=== PATIENT | female | born 1950 | race Caucasian/White ===

== ENCOUNTER 2018-07-08 10:06 | Outpatient (CLI) | payer MEDICARE, BC | END 2018-07-08 10:07 | disposition home or self-care (01) | LOC: RT 10:06 | PROVIDERS: ATTEND Internal Medicine Cardiovascular Disease | DX: I48.91 Unspecified atrial fibrillation (principal) | CPT/HCPCS: 93005 ==

== ENCOUNTER 2018-07-23 15:44 | Outpatient (CLI) | payer MEDICARE, BC ==
--- NOTE | 2018-07-30 08:45 | Mammography Report ---
Reason: SCREENING MAMMO Procedure Date: 07/23/2018 Accession Number: [id number] / [id number] Procedure: ALYCE - Screening Mammo w/Brooke CPT Code: FULL RESULT: EXAM: Screening Mammo w/Brooke DATE: 07/23/2018 4:15 PM CLINICAL HISTORY: Screening examination. TECHNIQUE: (B) - Bilateral CC and MLO views were obtained. COMPARISON: None PARENCHYMAL PATTERN: (A) - The breasts demonstrate scattered fibroglandular densities bilaterally. FINDINGS: Right breast: No suspicious mass, asymmetry or pleomorphic microcalcifications. Left breast: Small focal breast asymmetry periareolar, approximate 3:00 position (slice 35 on CC brooke and slice 31 on MLO brooke). IMPRESSION: Incomplete examination. BI-RADS category 0. RECOMMENDATION: (ADDMU) - Additional views using both Mammography and Ultrasound recommended. Recommend spot compression mammogram and targeted ultrasound. BI-RADS CATEGORY: (0) - Incomplete Examination - need additional evaluation. STANDARD QUALIFYING STATEMENTS: 1. This examination was not reviewed with the aid of Computer-Aided Detection (CAD). 2. A negative or benign imaging report should not preclude biopsy if clinically suspicious findings are present. 3. Dense breasts may obscure an underlying neoplasm. 4. This examination was reviewed with the aid of 3D breast imaging (tomosynthesis).
== END 2018-07-23 15:45 | disposition home or self-care (01) ==
LOC: DI 15:44
PROVIDERS: ATTEND Internal Medicine
DX: Z12.31 Encounter for screening mammogram for malignant neoplasm of breast (principal)
CPT/HCPCS: 77063; 77067

== ENCOUNTER 2018-10-03 11:07 | Emergency (ER) | payer MEDICARE, BC ==
[2018-10-03 11:29] LABS: BASOPHILS # (AUTO) 0.1 10^3/uL (0.0-0.1); BASOPHILS % (AUTO) 0.6 %; EOSINOPHILS # (AUTO) 0.2 10^3/uL (0.0-0.7); EOSINOPHILS % (AUTO) 1.9 %; HGB - HEMOGLOBIN 14.6 g/dL (12.0-16.0); LYMPHOCYTES # (AUTO) 3.1 10^3/uL (1.5-3.5); MEAN CORPUSCULAR HEMOGLOBIN 28.6 pg (27.0-31.0); MEAN CORPUSCULAR HGB CONC 31.7 g/dL (32.0-36.0); MEAN CORPUSCULAR VOLUME 90.2 fL (81.0-99.0); MEAN PLATELET VOLUME 10.8 fL (7.9-10.8); MONOCYTES # (AUTO) 0.7 10^3/uL (0.0-1.0); MONOCYTES % (AUTO) 8.2 %; NEUTROPHILS # (AUTO) 4.5 10^3/uL (1.5-6.6); NEUTROPHILS % (AUTO) 52.8 %; PLT - PLATELET COUNT 283 10^3/uL (130-450); RED CELL DISTRIBUTION WIDTH 12.9 % (12.0-15.0); WHITE BLOOD COUNT 8.5 x10^3/uL (4.8-10.8)
[2018-10-03 11:38] LABS: ALBUMIN 4.6 g/dL (3.2-5.5); ALBUMIN/GLOBULIN RATIO 1.6 (1.0-2.2); BILIRUBIN,TOTAL 1.1 mg/dL (0.2-1.0); CALCIUM 9.3 mg/dL (8.5-10.3); TOTAL PROTEIN 7.4 g/dL (6.7-8.2)
--- NOTE | 2018-10-03 11:55 | XRAY Report ---
Reason: Irregular heart beat Procedure Date: 10/03/2018 Accession Number: [id number] / [id number] Procedure: XR - Chest 1 View X-Ray CPT Code: 96914 FULL RESULT: EXAM: CHEST RADIOGRAPHY EXAM DATE: 10/03/2018 11:29 AM. CLINICAL HISTORY: Irregular heart beat. COMPARISON: None. TECHNIQUE: 1 view. FINDINGS: Lungs/Pleura: No focal opacities evident. No pleural effusion. No pneumothorax. Mediastinum: Within exam limitations, the cardiomediastinal contour is normal. Post sternotomy changes noted. Other: None. IMPRESSION: Grossly unremarkable exam, post sternotomy. RADIA
[2018-10-03] MEDS ORDERED: FLECAINIDE 50 MG TABLET PO STA (12:00)
--- NOTE | 2018-10-03 12:04 | ED Physician Documentation ---
History of Present Illness - Stated complaint Stated Complaint: IRREGULAR HB - Chief complaint Chief Complaint: Cardiac - History obtained from History obtained from: Patient - History of Present Illness Timing: Today Pain level max: 0 Pain level now: 0 Improved by: nothing Worsened by: nothing - Additonal information Additional information: felt her heart beating fast today. History of AFib. no chest pain. no dyspnea. No changes to her medications. She is on flecainide. She thinks that she may have a history of WPW, but is uncertain of this. Review of Systems Constitutional: denies: Fever, Chills Nose: denies: Rhinorrhea / runny nose, Congestion GI: denies: Vomiting, Diarrhea Skin: denies: Rash Musculoskeletal: denies: Neck pain, Back pain Neurologic: denies: Headache PD PAST MEDICAL HISTORY - Past Medical History Past Medical History: Yes Cardiovascular: Murmur, Valve disorder GI: Cholelithiasis - Past Surgical History Past Surgical History: Yes General: 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 - Present Medications Home Medications: Ambulatory Orders Medication Instructions Recorded Confirmed Calcium Citrate/Vitamin D3 1 each PO 12/02/12 12/02/12 [Calcitrate + Vit D Caplet] Loratadine [Children's Claritin] 5 mg PO 12/02/12 12/02/12 Simvastatin [Zocor] 20 mg PO 12/02/12 12/02/12 Apixaban [Eliquis] 5 mg PO DAILY 10/03/18 10/03/18 Flecainide [Tambocar] 50 mg PO Q12H 10/03/18 10/03/18 - Allergies Allergies/Adverse Reactions: Allergies Allergy/AdvReac Type Severity Reaction Status Date / Time tetanus immune globulin Allergy Intermediate Hives Verified 12/02/12 10:23 - Social History Does the pt smoke?: No Smoking Status: Never smoker Does the pt drink ETOH?: Yes PD ED PE NORMAL - Vitals Vital signs reviewed: Yes - General General: Alert and oriented X 3, No acute distress - HEENT HEENT: Moist mucous membranes - Neck Neck: Supple, no meningeal sign - Cardiac Cardiac: Other (irregular, tachycardic) - Respiratory Respiratory: No respiratory distress, Clear bilaterally - Abdomen Abdomen: Soft, Non tender, Non distended - Derm Derm: Warm and dry - Extremities Extremities: No edema, No calf tenderness / cord - Neuro Neuro: Alert and oriented X 3 Results - Vitals Vitals: Vital Signs - 24 hr 10/03/18 10/03/18 10/03/18 11:09 11:21 12:38 Temperature 36.3 C L Heart Rate 132 H 116 H 106 H Respiratory 20 18 16 Rate Blood Pressure 153/55 H 153/56 H 114/65 O2 Saturation 99 98 96 10/03/18 14:00 Temperature Heart Rate 99 Respiratory 22 Rate Blood Pressure 103/63 O2 Saturation 100 Oxygen O2 Source Room air - EKG (time done) 1109 Rate: Rate (enter#) (131) Rhythm: Atrial fibrillation (RVR) Intervals: RBBB - Labs Labs: Laboratory Tests 10/03/18 10/03/18 10/03/18 11:13 11:13 11:13 WBC 8.5 RBC 5.10 Hgb 14.6 Hct 46.0 MCV 90.2 MCH 28.6 MCHC 31.7 L RDW 12.9 Plt Count 283 MPV 10.8 Neut # (Auto) 4.5 Lymph # (Auto) 3.1 [place] # (Auto) 0.7 Eos # (Auto) 0.2 Baso # (Auto) 0.1 Absolute Nucleated RBC 0.00 Nucleated RBC % 0.0 Sodium 135 Potassium 3.4 L Chloride 99 L Carbon Dioxide 25 Anion Gap 11.0 BUN 14 Creatinine 1.0 Estimated GFR (MDRD) 55 L Glucose 120 H Calcium 9.3 Total Bilirubin 1.1 H AST 24 ALT 19 Alkaline Phosphatase 59 Troponin I < 0.04 Total Protein 7.4 Albumin 4.6 Globulin 2.8 Albumin/Globulin Ratio 1.6 Lipase 36 - Rads (name of study) cxr Radiology: Prelim report reviewed, EMP read contemporaneously, See rad report (normal) PD MEDICAL DECISION MAKING - ED course Complexity details: reviewed results, re-evaluated patient, considered differential, d/w patient, d/w family ED course: Patient with a history of atrial fibrillation with rapid ventricular response. She is taking flecainide. Took an extra dose in the emergency department and became rate controlled. She does not want to be cardioverted. 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 She is comfortable going home at this time and is asymptomatic. Patient counseled regarding signs and symptoms for which I believe and urgent re-evaluation would be necessary. Patient with good understanding of and agreement to plan and is comfortable going home at this time This document was made in part using voice recognition software. While efforts are made to proofread this document, sound alike and grammatical errors may occur. Departure - Departure Disposition: 01 Home, Self Care Clinical Impression: Atrial fibrillation with RVR Condition: Good Health Concerns: afib Plan of Treatment: flecanide Care Goals: rate/rhythm control Assessment: improved Instructions: ED Afib Follow-Up: Lela Robins MD [Primary Care Provider] - Within 1 week Comments: Return if you worsen. Because of your history of WPW, we will avoid AV carlos alberto blocking drugs today. Discharge Date/Time: 10/03/18 14:01
[2018-10-03 14:01] VITALS: BP 103/63
== END 2018-10-03 14:01 | disposition home or self-care (01) ==
LOC: ED 11:07
DX: I48.91 Unspecified atrial fibrillation (principal); I45.10 Unspecified right bundle-branch block; I45.81 Long QT syndrome; Z86.79 Personal history of other diseases of the circulatory system
CPT/HCPCS: 36415; 71045; 80053; 83690; 84484; 85025; 93005; 99282; 99284; A9270

== ENCOUNTER 2018-10-07 11:19 | Outpatient (CLI) | payer MEDICARE, BC ==
[2018-10-07 12:55] LABS: THYROID STIMULATING HORMONE 1.77 uIU/mL (0.34-5.60)
[2018-10-07 12:57] LABS: FREE T4 (FREE THYROXINE) 0.87 ng/dL (0.58-1.64)
== END 2018-10-07 11:20 | disposition home or self-care (01) ==
LOC: LAB 11:19
PROVIDERS: ATTEND Internal Medicine Cardiovascular Disease
DX: I48.91 Unspecified atrial fibrillation (principal)
CPT/HCPCS: 36415; 84439; 84443

== ENCOUNTER 2019-09-23 12:01 | Outpatient (CLI) | payer MEDICARE, BC ==
[2019-09-23] MEDS ORDERED: IOVERSOL 320 100 ML VIAL IVP ONE ×2 (12:17→14:52)
[2019-09-23] MEDS ORDERED: IOVERSOL 320 50 ML VIAL ONE (12:17)
[2019-09-23 12:40] LABS: CREATININE 0.7 mg/dL (0.4-1.0)
[2019-09-23] MEDS ORDERED: IOVERSOL 320 50 ML VIAL PO ONE (14:52)
--- NOTE | 2019-09-23 15:07 | CT Report ---
PROCEDURE: Abdomen/Pelvis W INDICATIONS: RLQ AND LUQ ABDOMINAL PAIN CONTRAST: IV CONTRAST: Optiray 320 ml: 100 PO CONTRAST: Optiray 320 ml50 TECHNIQUE: After the administration of oral and intravenous contrast, 5 mm thick sections acquired from the diap hragms to the symphysis. 5 mm thick coronal and sagittal reformats were acquired. For radiation dos e reduction, the following was used: automated exposure control, adjustment of mA and/or kV accordin g to patient size. COMPARISON: None. FINDINGS: Image quality: Excellent. ABDOMEN: Lung bases: Lung bases are clear. Heart size is mildly enlarged. There is a small hiatal hernia. Solid organs: Multiple hepatic cysts are demonstrated. Scattered hepatic calcifications are also pre sent consistent with sequelae of old granulomatous disease. Gallbladder is surgically absent. Biliar y system is non dilated. Pancreas enhances normally. No peripancreatic fat stranding and fluid colle ctions. No pancreatic duct dilatation. No adrenal nodules. The spleen is normal in size. A small oval hypodensity is demonstrated in the spleen measuring up to 1.1 cm. No perisplenic fluid collections. Kidneys demonstrate normal size and enhancement, without hydronephrosis. Peritoneum and bowel: Bowel loops demonstrate normal wall thickness and caliber. The appendix is no rmal in appearance. No free fluid or air. Nodes and vessels: No retroperitoneal or mesenteric adenopathy by size criteria. Aorta and inferior vena cava are normal in size. Miscellaneous: No ventral hernias. PELVIS: Genitourinary: Bladder wall thickness is normal. Miscellaneous: No inguinal hernias or adenopathy. Bones: No suspicious bony lesions. No vertebral body compression fractures. IMPRESSION: 1. No definite acute intra-abdominal abnormality. Specifically, no evidence of appendicitis. 2. Nonspecific small hypodensity in the spleen. Differential considerations include a cyst, hemangiom a, or sequelae of prior trauma. Reviewed by: Prasad Waterman MD on 09/23/2019 3:06 PM PDT Approved by: Prasad Waterman MD on 09/23/2019 3:06 PM PDT Station ID: [id number]
== END 2019-09-23 12:02 | disposition home or self-care (01) ==
LOC: DI 12:01
PROVIDERS: ATTEND Internal Medicine
DX: R93.89 Abnormal findings on diagnostic imaging of other specified body structures (principal); K76.89 Other specified diseases of liver; Z90.49 Acquired absence of other specified parts of digestive tract
CPT/HCPCS: 36415; 74177; 82565; Q9967

== ENCOUNTER 2020-04-26 18:00 | Outpatient (CLI) | payer MEDICARE, BC ==
--- NOTE | 2020-04-26 11:42 | XRAY Report ---
PROCEDURE: Foot 3 View RT INDICATIONS: PX IN R FOOT TECHNIQUE: 3 views of the foot were acquired. COMPARISON: None FINDINGS: Bones: No fractures or dislocations. No suspicious bony lesions. Soft tissues: No tibiotalar joint effusion. Achilles tendon appears normal. IMPRESSION: No trauma found, source of pain is not identified. Reviewed by: Edgardo Carvalho MD on 04/26/2020 11:41 AM [facility] Approved by: Edgardo Carvalho MD on 04/26/2020 11:41 AM [facility] Station ID: [id number]
--- NOTE | 2020-04-26 11:42 | XRAY Report ---
PROCEDURE: Knee 4 View RT INDICATIONS: PX IN R FOOT TECHNIQUE: 4 views of the right knee(s) were acquired. COMPARISON: None. FINDINGS: Bones: No fractures or dislocations. No suspicious bony lesions. Soft tissues: No joint effusion. No suspicious soft tissue calcifications. IMPRESSION: No trauma found, no appreciable degenerative change. There is no sign of joint effusion or loose body. Reviewed by: Edgardo Carvalho MD on 04/26/2020 11:41 AM PST Approved by: Edgardo Carvalho MD on 04/26/2020 11:41 AM PST Station ID: [id number]
== END 2020-04-26 23:59 | disposition home or self-care (01) ==
LOC: DI.N 18:00
PROVIDERS: ATTEND Orthopaedic Surgery
DX: M79.671 Pain in right foot (principal)

== ENCOUNTER 2020-11-27 10:52 | Outpatient (CLI) | payer MEDICARE, BC ==
[2020-11-27 11:21] LABS: BASOPHILS % (AUTO) 0.6 %; EOSINOPHILS # (AUTO) 0.1 10^3/uL (0.0-0.7); EOSINOPHILS % (AUTO) 2.4 %; HCT - HEMATOCRIT 39.6 % (37.0-47.0); HGB - HEMOGLOBIN 13.5 g/dL (12.0-16.0); LYMPHOCYTES # (AUTO) 1.6 10^3/uL (1.5-3.5); LYMPHOCYTES % (AUTO) 32.3 %; MEAN CORPUSCULAR HEMOGLOBIN 30.1 pg (27.0-31.0); MEAN CORPUSCULAR HGB CONC 34.1 g/dL (32.0-36.0); MEAN CORPUSCULAR VOLUME 88.4 fL (81.0-99.0); MONOCYTES # (AUTO) 0.4 10^3/uL (0.0-1.0); MONOCYTES % (AUTO) 8.2 %; NEUTROPHILS # (AUTO) 2.8 10^3/uL (1.5-6.6); NEUTROPHILS % (AUTO) 56.3 %; PLT - PLATELET COUNT 207 10^3/uL (130-450); RED BLOOD COUNT 4.48 10^6/uL (4.20-5.40); RED CELL DISTRIBUTION WIDTH 13.1 % (12.0-15.0)
[2020-11-27 11:44] LABS: ALBUMIN 4.8 g/dL (3.2-5.5); ALBUMIN/GLOBULIN RATIO 2.2 (1.0-2.2); ALKALINE PHOSPHATASE 54 IU/L (42-121); ALT ALANINE AMINOTRANSFERASE 20 IU/L (10-60); AST ASPARTATE AMINOTRANSFERASE 20 IU/L (10-42); BILIRUBIN,TOTAL 0.9 mg/dL (0.2-1.0); BUN - BLOOD UREA NITROGEN 13 mg/dL (6-20); CALCIUM 9.6 mg/dL (8.5-10.3); CARBON DIOXIDE - CO2 26 mmol/L (21-32); CHLORIDE 101 mmol/L (101-111); CHOL/HDL RATIO 2.6 (<4.4); CHOLESTEROL 185 mg/dL; CREATININE 0.7 mg/dL (0.4-1.0); GFR - MDRD 83 (>89); GLUCOSE 101 mg/dL (70-100); HDL CHOLESTEROL 71 mg/dL; LDL CHOLESTEROL,CALCULATED 95 mg/dL; LDL/HDL RATIO 1.3 (<4.4); POTASSIUM 4.3 mmol/L (3.5-5.0); SODIUM 138 mmol/L (135-145); TRIGLYCERIDES 96 mg/dL; VLDL CHOLESTEROL 19 mg/dL
[2020-11-27 13:51] LABS: ESTIMATED AVERAGE GLUCOSE 117 mg/dL (70-100); HEMOGLOBIN A1c% 5.7 % (4.27-6.07)
== END 2020-11-27 10:53 | disposition home or self-care (01) ==
LOC: LAB 10:52
PROVIDERS: ATTEND Internal Medicine
DX: C85.90 Non-Hodgkin lymphoma, unspecified, unspecified site (principal); I34.0 Nonrheumatic mitral (valve) insufficiency; I48.91 Unspecified atrial fibrillation; L40.9 Psoriasis, unspecified; R73.01 Impaired fasting glucose; Z79.899 Other long term (current) drug therapy; Z13.6 Encounter for screening for cardiovascular disorders
CPT/HCPCS: 36415; 80053; 80061; 82306; 83036; 83721; 84443; 85025

== ENCOUNTER 2020-12-28 08:44 | Outpatient (CLI) | payer MEDICARE, BC ==
--- NOTE | 2021-01-01 13:04 | Mammography Report ---
BILATERAL DIGITAL DIAGNOSTIC MAMMOGRAM 3D/2D: 12/28/2020 CLINICAL: Patient returns today to evaluate a focal asymmetry in the left breast. Comparison is made to exams dated: 07/23/2018 mammogram - [facility] and 06/17/2012 m ammogram - [facility]. The tissue of both breasts is predominantly fatty. No significant masses, calcifications, or other findings are seen in either breast. Previously quest ioned asymmetries have not changed since 2019, statistically benign. IMPRESSION: NEGATIVE There is no mammographic evidence of malignancy. Return to annual mammogram screening schedule is rec ommended. This exam was interpreted at Station ID: [id number]. NOTE: For mammograms, a report in lay terms will be sent to the patient. Approximately 15% of breast malignancies will not be visualized mammographically. In the management of a palpable breast mass, a negative mammogram must not discourage biopsy of a clinically suspicious lesion. Electronically Signed By: Omar Sherman M.D. jr/:12/28/2020 11:26:04 ACR BI-RADS Category 1: Negative 3341F PARENCHYMAL PATTERN: (F) - The breast(s) demonstrate(s) diffuse fatty replacement. BI-RADS CATEGORY: (1) - 1 RECOMMENDATION: (ANNUAL) - Recommend routine annual screening mammography. [id number] return to screening LATERALITY: (B)
== END 2020-12-28 08:45 | disposition home or self-care (01) ==
LOC: DI 08:44
PROVIDERS: ATTEND Internal Medicine
DX: R92.8 Other abnormal and inconclusive findings on diagnostic imaging of breast (principal)

== ENCOUNTER 2021-05-16 11:08 | Outpatient (CLI) | payer MEDICARE, BC ==
--- NOTE | 2021-05-16 14:00 | XRAY Report ---
PROCEDURE: Lumbar Spine 2 View INDICATIONS: LBP WORSENING TECHNIQUE: 2 views of the lumbar spine were acquired. COMPARISON: None. FINDINGS: L-SPINE: No acute displaced fracture or malalignment. Mild levocurvature of the lumbar spine. Endplat e osteophytes are seen. The vertebral body heights are preserved. The disc space heights are essenti ally maintained. The sacroiliac joints appear patent. SOFT TISSUES: No focal abnormality. Right upper quadrant surgical clips, likely reflecting prior chol ecystectomy. Calcification overlying the left pelvis, which may reflect a phlebolith or fibroid. IMPRESSION: 1.No acute osseous abnormality of the lumbar spine. Reviewed by: Yvan Cheung MD on 05/16/2021 1:58 PM PST Approved by: Yvan Cheung MD on 05/16/2021 1:58 PM PST Station ID: [id number]
== END 2021-05-16 11:09 | disposition home or self-care (01) ==
LOC: DI 11:08
PROVIDERS: ATTEND Internal Medicine
DX: M54.50 Low back pain, unspecified (principal)

== ENCOUNTER 2021-07-19 13:22 | Outpatient (CLI) | payer MEDICARE, BC | END 2021-07-19 13:23 | disposition home or self-care (01) | LOC: RT 13:22 | PROVIDERS: ATTEND Internal Medicine | DX: I48.0 Paroxysmal atrial fibrillation (principal) | CPT/HCPCS: 93005 ==

== ENCOUNTER 2022-01-15 13:11 | Outpatient (CLI) | payer MEDICARE, BC | END 2022-01-15 13:12 | disposition home or self-care (01) | LOC: RT 13:11 | PROVIDERS: ATTEND Internal Medicine | DX: I48.0 Paroxysmal atrial fibrillation (principal) | CPT/HCPCS: 93005 ==

== ENCOUNTER 2022-02-13 11:58 | Emergency (ER) | payer MEDICARE, BC ==
[2022-02-13 12:37] LABS: BASOPHILS % (AUTO) 0.3 %; EOSINOPHILS # (AUTO) 0.1 10^3/uL (0.0-0.7); EOSINOPHILS % (AUTO) 1.1 %; HCT - HEMATOCRIT 38.4 % (37.0-47.0); HGB - HEMOGLOBIN 12.3 g/dL (12.0-16.0); LYMPHOCYTES # (AUTO) 1.4 10^3/uL (1.5-3.5); LYMPHOCYTES % (AUTO) 21.1 %; MEAN CORPUSCULAR HEMOGLOBIN 28.5 pg (27.0-31.0); MEAN CORPUSCULAR VOLUME 89.1 fL (81.0-99.0); MEAN PLATELET VOLUME 9.7 fL (7.9-10.8); MONOCYTES # (AUTO) 0.4 10^3/uL (0.0-1.0); MONOCYTES % (AUTO) 5.8 %; NEUTROPHILS # (AUTO) 4.6 10^3/uL (1.5-6.6); NEUTROPHILS % (AUTO) 71.4 %; PLT - PLATELET COUNT 228 10^3/uL (130-450); RED BLOOD COUNT 4.31 10^6/uL (4.20-5.40); RED CELL DISTRIBUTION WIDTH 13.3 % (12.0-15.0); WHITE BLOOD COUNT 6.5 x10^3/uL (4.8-10.8)
[2022-02-13 12:52] LABS: ALBUMIN 4.3 g/dL (3.2-5.5); ALBUMIN/GLOBULIN RATIO 1.7 (1.0-2.2); BILIRUBIN,TOTAL 0.7 mg/dL (0.2-1.0); CALCIUM 9.3 mg/dL (8.5-10.3); CREATININE 0.8 mg/dL (0.4-1.0); TOTAL PROTEIN 6.8 g/dL (6.7-8.2)
--- NOTE | 2022-02-13 13:08 | XRAY Report ---
PROCEDURE: Chest 1 View X-Ray INDICATIONS: Chest pain TECHNIQUE: One view of the chest was acquired. COMPARISON: CXR 10/03/2018. FINDINGS: Surgical changes and devices: Post median sternotomy. 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 clips. Lungs and pleura: No pleural effusions or pneumothorax. Lungs are clear. Mediastinum: Mediastinal contours appear unchanged. Heart size is prominent. Bones and chest wall: No suspicious bony lesions. Overlying soft tissues appear unremarkable. IMPRESSION: No acute cardiopulmonary abnormality. Reviewed by: Donato Salazar MD on 02/13/2022 12:07 PM [facility] Approved by: Donato Salazar MD on 02/13/2022 12:07 PM [facility] Station ID: [id number]
[2022-02-13] MEDS ORDERED: ALBUTEROL NEB 2.5 MG/3 ML INH STA (14:46)
--- NOTE | 2022-02-13 14:49 | ED Physician Documentation ---
PD HPI CHEST PAIN - Stated complaint Stated Complaint: SOA - Chief complaint Chief Complaint: Cardiac - History obtained from History obtained from: Patient, Family () - Additional information Additional information: 71 yo f with hx open ASD repair age 19, with CHF then. Now with afib/flutter. Known ASD repair failure, MR, . Last echo 5 yrs ago. Now progressive dyspnea, orthopnea and upper chest pressure x weeks, worse x 2 days. Dry cough x weeks. No pedal edema. No hx CAD on DOAC Review of Systems Ten Systems: 10 systems reviewed and negative Constitutional: reports: Fatigue Cardiac: reports: Chest pain / pressure. denies: Pedal edema, Calf pain Respiratory: reports: Dyspnea, Cough PD PAST MEDICAL HISTORY - Past Medical History Cardiovascular: Murmur, Valve disorder GI: Cholelithiasis - Past Surgical History Past Surgical History: Yes General: 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 - Present Medications Home Medications: Ambulatory Orders Medication Instructions Recorded Confirmed Calcium Citrate/Vitamin D3 1 each PO 12/02/12 12/02/12 [Calcitrate + Vit D Caplet] Apixaban [Eliquis] 5 mg PO BID 10/03/18 10/03/18 Atorvastatin [Lipitor] 20 mg ORAL DAILY 02/13/22 02/13/22 Flecainide [Tambocar] 100 mg PO Q12H 02/13/22 02/13/22 Fluticasone [Flonase] 1 sprays ROBYN DAILY 02/13/22 02/13/22 Furosemide [Lasix] 20 mg PO DAILY #10 tablet 02/13/22 Metoprolol Succinate [Toprol Xl] 50 mg PO DAILY 02/13/22 02/13/22 Potassium Chloride 10 meq PO DAILY #10 tab 02/13/22 - Allergies Allergies/Adverse Reactions: Allergies Allergy/AdvReac Type Severity Reaction Status Date / Time tetanus immune globulin Allergy Intermediate Hives Verified 02/13/22 12:14 - Social History Does the pt smoke?: No Smoking Status: Never smoker Does the pt drink ETOH?: Yes PD ED PE NORMAL - Vitals Vital signs reviewed: Yes - General General: Alert and oriented X 3, No acute distress - HEENT HEENT: PERRL, EOMI - Neck Neck: Supple, no meningeal sign, No bony TTP - Cardiac Cardiac: Other (irreg/irregn with 2-3/6 both systolic and diastolic murmurs.) - Respiratory Respiratory: No respiratory distress, Clear bilaterally - Abdomen Abdomen: Non tender - Back Back: No CVA TTP, No spinal TTP - Derm Derm: Normal color, Warm and dry - Extremities Extremities: No edema, No calf tenderness / cord - Neuro Neuro: Alert and oriented X 3, Normal speech Results - Vitals Vitals: Vital Signs - 24 hr 02/13/22 02/13/22 02/13/22 12:11 15:00 15:42 Temperature 36.5 C Heart Rate 104 H 90 92 Respiratory 20 20 16 Rate Blood Pressure 121/45 L 119/72 O2 Saturation 97 98 02/13/22 17:00 Temperature Heart Rate 92 Respiratory 16 Rate Blood Pressure 127/74 O2 Saturation 100 Oxygen O2 Source Room air - EKG (time done) 1211 Rate: Rate (enter#) (91) Rhythm: Atrial fibrillation Intervals: RBBB, Other (lafb) QRS: LVH Compare to prior EKG: Unchanged from prior EKG - Labs Labs: Laboratory Tests 02/13/22 02/13/22 02/13/22 12:30 12:30 12:30 WBC 6.5 RBC 4.31 Hgb 12.3 Hct 38.4 MCV 89.1 MCH 28.5 MCHC 32.0 RDW 13.3 Plt Count 228 MPV 9.7 Neut # (Auto) 4.6 Lymph # (Auto) 1.4 L [place] # (Auto) 0.4 Eos # (Auto) 0.1 Baso # (Auto) 0.0 Absolute Nucleated RBC 0.00 Nucleated RBC % 0.0 Sodium 134 L Potassium 4.0 Chloride 98 L Carbon Dioxide 27 Anion Gap 9.0 BUN 12 Creatinine 0.8 Estimated GFR (MDRD) 71 L Glucose 153 H Calcium 9.3 Total Bilirubin 0.7 AST 27 ALT 49 Alkaline Phosphatase 88 Troponin I High Sens 7.7 Total Protein 6.8 Albumin 4.3 Globulin 2.5 Albumin/Globulin Ratio 1.7 Lipase 45 PD MEDICAL DECISION MAKING - ED course ED course: 71-year-old woman without coronary disease but with a complicated cardiac history including ASD and mitral valve repair at age 19 presents with progressive dyspnea on exertion but with clear lungs, no evidence of peripheral fluid overload and a normal chest x-ray. Nothing in the history or physical to suggest thromboembolic disease and she is therapeutically anticoagulated. We trialed albuterol which was really not helpful. An echo was done and preliminarily showing LVEF of 30 to 35%, flattening of the septal wall consistent with right ventricular volume overload, moderate right ventricular enlargement, severe left atrial enlargement, severe right atrial enlargement, mild aortic sclerosis and AR. Moderate to severe MR, moderate to severe TR. RVSP 39 mmHg which may be underestimated due to the severity of TR. Trace pulmonic regurgitation. Shunting through the ASD surgical patch predominantly left to right. The constellation of findings would suggest that her dyspnea may be related to right ventricular fluid overload and cardiomyopathy noting that her EF of 35% is probably overestimated functionally due to her severe MR. We will start some diuresis, and a call was placed to [facility] cardiology for consult and expedited follow-up at approximately 5:30 PM. After some delays initially after the hospital paged the wrong cardiology group and the incinerator operator on-call was in a meeting I was able to speak with Dr. Lima at approximately 6:50 PM and she agrees with the management and will accelerate her follow-up. Departure - Departure Disposition: 01 Home, Self Care Clinical Impression: Mitral regurgitation Qualifiers: Cardiac valve disease etiology: etiology unspecified Qualified Code(s): I34.0 - Nonrheumatic mitral (valve) insufficiency Congestive heart failure Qualifiers: Heart failure type: right-sided Heart failure chronicity: acute on chronic Qualified Code(s): I50.813 - Acute on chronic right heart failure Condition: Good Record reviewed to determine appropriate education?: Yes Instructions: ED CHF Right Side Prescriptions: Furosemide [Lasix] 20 mg PO DAILY #10 tablet Potassium Chloride 10 meq PO DAILY #10 tab Comments: Tonight you were found to have low ejection fraction with multiple valvular abnormalities, including severe right mitral regurgitation and partial failure of your ASD repair. This is led to increased pressures on the right side of your heart which I think are making you feel short of breath. We are going to give you some diuresis and ice discussed your case with Dr. Lima, on-call for Dr. Jackman. They will reach out to you with an earlier appointment than the one you have scheduled in April as you do need to be closely evaluated by cardiology and potentially also see cardiothoracic surgery. In the meantime we are diuresing you and also prescribing a potassium supplement to go along with a diuretic. Continue your other regular medications. Return for new or worsening symptoms.
[2022-02-13] MEDS ORDERED: POTASSIUM CHLORIDE 20 MEQ TABLET PO STA (17:20)
[2022-02-13] MEDS ORDERED: FUROSEMIDE 20 MG TABLET PO STA (17:20)
[2022-02-13 19:04] VITALS: BP 132/84
== END 2022-02-13 19:03 | disposition home or self-care (01) ==
LOC: ED 11:58
DX: I50.813 Acute on chronic right heart failure (principal); I34.0 Nonrheumatic mitral (valve) insufficiency; I35.1 Nonrheumatic aortic (valve) insufficiency; I36.1 Nonrheumatic tricuspid (valve) insufficiency; I48.91 Unspecified atrial fibrillation; Z79.01 Long term (current) use of anticoagulants; I45.2 Bifascicular block; Z98.890 Other specified postprocedural states
CPT/HCPCS: 36415; 71045; 80053; 83690; 84484; 85025; 93005; 93306; 94640; 99284; A9270

== ENCOUNTER 2022-03-13 17:01 | Emergency (ER) | payer MEDICARE, BC ==
[2022-03-13 17:32] LABS: BASOPHILS # (AUTO) 0.1 10^3/uL (0.0-0.1); BASOPHILS % (AUTO) 0.7 %; EOSINOPHILS # (AUTO) 0.1 10^3/uL (0.0-0.7); EOSINOPHILS % (AUTO) 1.7 %; HCT - HEMATOCRIT 37.3 % (37.0-47.0); HGB - HEMOGLOBIN 11.9 g/dL (12.0-16.0); LYMPHOCYTES # (AUTO) 2.1 10^3/uL (1.5-3.5); LYMPHOCYTES % (AUTO) 29.1 %; MEAN CORPUSCULAR HEMOGLOBIN 28.1 pg (27.0-31.0); MEAN CORPUSCULAR HGB CONC 31.9 g/dL (32.0-36.0); MEAN PLATELET VOLUME 9.6 fL (7.9-10.8); MONOCYTES # (AUTO) 0.5 10^3/uL (0.0-1.0); MONOCYTES % (AUTO) 7.4 %; NEUTROPHILS # (AUTO) 4.3 10^3/uL (1.5-6.6); NEUTROPHILS % (AUTO) 60.7 %; PLT - PLATELET COUNT 214 10^3/uL (130-450); RED BLOOD COUNT 4.24 10^6/uL (4.20-5.40); RED CELL DISTRIBUTION WIDTH 13.6 % (12.0-15.0); WHITE BLOOD COUNT 7.1 x10^3/uL (4.8-10.8)
--- NOTE | 2022-03-13 17:44 | XRAY Report ---
PROCEDURE: Chest 1 View X-Ray INDICATIONS: Chest pain TECHNIQUE: One view of the chest was acquired. COMPARISON: 02/13/2022. FINDINGS: Surgical changes and devices: Median sternotomy changes. Lungs and pleura: No pleural effusions or pneumothorax. Pulmonary vascular congestion. No airspace o pacity. Mediastinum: Mediastinal contours appear normal. Heart size is similarly enlarged. Bones and chest wall: No suspicious bony lesions. Overlying soft tissues appear unremarkable. IMPRESSION: Moderate cardiomegaly with pulmonary vascular congestion. Reviewed by: Omar Sherman MD on 03/13/2022 5:43 PM PST Approved by: Omar Sherman MD on 03/13/2022 5:43 PM PST Station ID: [id number]
[2022-03-13 17:46] LABS: ALBUMIN 3.9 g/dL (3.2-5.5); ALBUMIN/GLOBULIN RATIO 1.3 (1.0-2.2); BILIRUBIN,TOTAL 0.7 mg/dL (0.2-1.0); CREATININE 0.7 mg/dL (0.4-1.0); POTASSIUM 3.4 mmol/L (3.5-5.0); TOTAL PROTEIN 6.8 g/dL (6.7-8.2)
--- NOTE | 2022-03-13 18:48 | ED Physician Documentation ---
History of Present Illness - Stated complaint Stated Complaint: SOA - Chief complaint Chief Complaint: Resp - History obtained from History obtained from: Patient - Additonal information Additional information: This is a 71-year-old female has a past medical history of ASD, congestive heart failure, and recent atrial fibrillation status post Cardioversion. She states that she had a transesophageal echocardiogram recently with the cardioversion. She then had some of her medication adjusted and had not taken her Lasix for a day or 2. She states today she felt more short of breath particularly with activity but did not have Any chest pain. She denies any appreciable weight gain but does note she has some difficulty lying flat though this is not necessarily new for her. She called her water resources engineer expecting them to tell her just to resume the Lasix but nobody called her back until late in the afternoon and they told her to come in for evaluation. She has otherwise been feeling well, denies any fever chills, no cough or URI symptoms, no chest pain, no heart palpitations, no nausea vomiting or diarrhea, no urinary symptoms. She has not noted any lower extremity edema. She states her heart rate has been low since her cardioversion in they have already adjusted her metoprolol and decreased it by half yesterday. She states she had a prior ASD repair which failed and has follow-up for possible new surgery in the future. 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 - Present Medications Home Medications: Ambulatory Orders Medication Instructions Recorded Confirmed Calcium Citrate/Vitamin D3 1 each PO 12/02/12 12/02/12 [Calcitrate + Vit D Caplet] Apixaban [Eliquis] 5 mg PO BID 10/03/18 10/03/18 Atorvastatin [Lipitor] 20 mg ORAL DAILY 02/13/22 02/13/22 Flecainide [Tambocar] 100 mg PO Q12H 02/13/22 02/13/22 Fluticasone [Flonase] 1 sprays ROBYN DAILY 02/13/22 02/13/22 Furosemide [Lasix] 20 mg PO DAILY #10 tablet 02/13/22 Metoprolol Succinate [Toprol Xl] 50 mg PO DAILY 02/13/22 02/13/22 Potassium Chloride 10 meq PO DAILY #10 tab 02/13/22 - Allergies Allergies/Adverse Reactions: Allergies Allergy/AdvReac Type Severity Reaction Status Date / Time erythromycin base Allergy Emesis Verified 03/13/22 17:20 - Social History Does the pt smoke?: No Smoking Status: Never smoker Does the pt drink ETOH?: Yes Does the pt have substance abuse?: No - Immunizations Immunizations are current?: Yes PD ED PE NORMAL - Vitals Vital signs reviewed: Yes - General General: Alert and oriented X 3, No acute distress, Well developed/nourished, Other (Patient tearful at times.) - HEENT HEENT: Atraumatic, Moist mucous membranes - Neck Neck: Supple, no meningeal sign, No JVD - Cardiac Cardiac: RRR, No murmur, No gallop, No rub, Strong equal pulses - Respiratory Respiratory: No respiratory distress, Clear bilaterally, Other (Talking in full sentences) - Abdomen Abdomen: Normal bowel sounds, Soft, Non tender, Non distended - Extremities Extremities: No edema, No calf tenderness / cord - Neuro Neuro: Alert and oriented X 3 Eye Opening: Spontaneous Motor: Obeys Commands Verbal: Oriented GCS Score: 15 Results - Vitals Vitals: Vital Signs - 24 hr 03/13/22 03/13/22 03/13/22 17:15 19:19 20:08 Temperature 36.7 C Heart Rate 57 L 55 L 55 L Respiratory 14 17 16 Rate Blood Pressure 136/72 H 129/69 130/79 O2 Saturation 100 96 95 Oxygen O2 Source Room air - EKG (time done) No standard instances Rate: Rate (enter#) (50) Rhythm: Sinus bradycardia Gipsy: Posterior hemiblock Intervals: Prolonged [place] QRS: LVH Ischemia: Non specific changes Compare to prior EKG: Changed from prior EKG (prior was afib.) Computer interpretation: Agree with computer - Labs Labs: Laboratory Tests 03/13/22 03/13/22 03/13/22 17:27 17:27 17:27 WBC 7.1 RBC 4.24 Hgb 11.9 L Hct 37.3 MCV 88.0 MCH 28.1 MCHC 31.9 L RDW 13.6 Plt Count 214 MPV 9.6 Neut # (Auto) 4.3 Lymph # (Auto) 2.1 [place] # (Auto) 0.5 Eos # (Auto) 0.1 Baso # (Auto) 0.1 Absolute Nucleated RBC 0.00 Nucleated RBC % 0.0 Sodium 134 L Potassium 3.4 L Chloride 99 L Carbon Dioxide 25 Anion Gap 10.0 BUN 11 Creatinine 0.7 Estimated GFR (MDRD) 82 L Glucose 122 H Calcium 9.0 Total Bilirubin 0.7 AST 26 ALT 34 Alkaline Phosphatase 85 Troponin I High Sens 12.0 B-Natriuretic Peptide Total Protein 6.8 Albumin 3.9 Globulin 2.9 Albumin/Globulin Ratio 1.3 Lipase 97 H 03/13/22 17:27 WBC RBC Hgb Hct MCV MCH MCHC RDW Plt Count MPV Neut # (Auto) Lymph # (Auto) [place] # (Auto) Eos # (Auto) Baso # (Auto) Absolute Nucleated RBC Nucleated RBC % Sodium Potassium Chloride Carbon Dioxide Anion Gap BUN Creatinine Estimated GFR (MDRD) Glucose Calcium Total Bilirubin AST ALT Alkaline Phosphatase Troponin I High Sens B-Natriuretic Peptide 375 H Total Protein Albumin Globulin Albumin/Globulin Ratio Lipase PD MEDICAL DECISION MAKING - ED course Complexity details: reviewed old records, reviewed results, re-evaluated patient, considered differential, d/w patient ED course: This is a very pleasant 71-year-old female who presented with shortness of breath, particular with exertion, over the last day or so. Patient has a recent complex medical history as noted per HPI with a recent transesophageal echocardiogram and cardioversion. Differentials today considered included acute exacerbation of CHF, pneumonia or viral infection, pneumothorax, ACS, less likely pulmonary embolus as patient is on anticoagulation. She is well-appearing on arrival here, oxygenating well on room air, speaking in full sentences without any hypoxia or distress. She has no chest pain. We obtained a EKG which shows sinus bradycardia without any acute ST changes. Her chest x-ray shows mild vascular congestion but no other acute findings. On lab exam, patient is mildly anemic, she has mildly low potassium and her BNP is elevated at 375. Her troponin is within normal range at 12. The patient was given a single dose of Lasix 20 mg IV with p.o. potassium and was able to void a decent amount according to her. She felt somewhat better and was reassured by her normal oxygenation And she was eager to return home. She still felt Mildly short of breath when she walked back and forth to the bathroom but feels it was improved from prior. I discussed all findings with patient and think she is safe for dispo home at this time but recommended that she resume the Lasix and potassium, which she already has at home, for now until she has follow-up with her water resources engineer and pcp. She does not require admission for fluid overload at this time as it is mild and she is oxygenating well on room air. I did review return precautions however if she should have any new or worsening symptoms. Patient was discharged home in stable condition. Departure - Departure Disposition: Home, Self Care Clinical Impression: Congestive heart failure Condition: Good Instructions: Heart Failure Dc Comments: Your oxygen level here and your other labs were stable today but there does appear to be some fluid buildup in the lungs. We gave you some Lasix here which may cause you to continue to urinate tonight. Please resume taking your Lasix and potassium as previously prescribed. Talk with your water resources engineer tomorrow about whether or not to decrease the metoprolol to 12.5 mg as your heart rate runs in the low 50s. Please adhere to a low-salt diet and take all your other medications as planned. Follow-up with your water resources engineer as needed or return to the ER if you have increasing shortness of breath or other new concerns. Discharge Date/Time: 03/13/22 20:08
[2022-03-13] MEDS ORDERED: POTASSIUM CHLORIDE 20 MEQ TABLET PO STA (19:05)
[2022-03-13] MEDS ORDERED: FUROSEMIDE 20 MG/2 ML VIAL IVP STA (19:05)
[2022-03-13 21:24] VITALS: BP 130/79
== END 2022-03-13 20:08 | disposition home or self-care (01) ==
LOC: ED 17:01
DX: I50.9 Heart failure, unspecified (principal); E87.6 Hypokalemia; R00.1 Bradycardia, unspecified; T50.1X6A Underdosing of loop [high-ceiling] diuretics, initial encounter; Z91.138 Patient's unintentional underdosing of medication regimen for other reason
CPT/HCPCS: 36415; 71045; 80053; 83690; 83880; 84484; 85025; 93005; 96374; 99284; A9270

== ENCOUNTER 2022-03-31 05:57 | Emergency (ER) | payer MEDICARE, BC ==
[2022-03-31] MEDS: HYDROcod/ACETAM 5/325 MG TABLET PO STA (07:51)
[2022-03-31] MEDS: predniSONE 20 MG TABLET PO STA (07:51)
--- NOTE | 2022-03-31 07:58 | ED Physician Documentation ---
History of Present Illness - Stated complaint Stated Complaint: LOWER BACK PX - Chief complaint Chief Complaint: Back Pain - History obtained from History obtained from: Patient, Family - Additonal information Additional information: The patient comes to the emergency department with chief complaint of low back pain that started last night. She indicates that the pain is around the L5-S1 area and radiates out across both sides of her back [place] but worse on the right. The patient states she had an angiogram done 3 days ago and they did go in her right Groin. She was told to return to the emergency department if she had any back pain, so she is come here. 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 She states she did try Tylenol at home, and this did not seem to help much. She states that she has not had any acute trauma. She has been completely fine since her procedure until waking up in the middle of the night with this pain. The patient denies any numbness or tingling in her lower extremities. She has not had any lightheadedness that is unusual for her. No shortness of breath or chest pain. The patient states that she has not had any abdominal pain. She has some ecchymosis around the site of puncture in her right inguinal area, but has not noticed any mass or expanding enlargement. The patient states that the pain is worse when she moves certain ways or stands, but that movement in general does make it feel better. No other complaints at this time. The patient notes that she is on Eliquis, which she restarted yesterday. Review of Systems Ten Systems: 10 systems reviewed and negative Constitutional: reports: Reviewed and negative Eyes: reports: Reviewed and negative Ears: reports: Reviewed and negative Nose: reports: Reviewed and negative Throat: reports: Reviewed and negative Cardiac: reports: Reviewed and negative Respiratory: reports: Reviewed and negative GI: reports: Reviewed and negative : reports: Reviewed and negative Skin: reports: Reviewed and negative Musculoskeletal: reports: Back pain Neurologic: reports: Reviewed and negative Psychiatric: reports: Reviewed and negative Endocrine: reports: Reviewed and negative Immunocompromised: reports: Reviewed and negative PD PAST MEDICAL HISTORY - Past Medical History Past Medical History: Yes Cardiovascular: Congestive heart failure, Atrial flutter, Atrial fibrillation, Murmur, Valve disorder GI: Pancreatitis, Cholelithiasis Other Past Medical History: Tricuspid, Mitral Valva, Aortic Valve Regurgitation - Past Surgical History Past Surgical History: Yes General: 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, 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 HEENT: Other - Present Medications Home Medications: Ambulatory Orders Medication Instructions Recorded Confirmed Apixaban [Eliquis] 5 mg PO BID 10/03/18 03/31/22 Atorvastatin [Lipitor] 20 mg ORAL DAILY 02/13/22 03/31/22 Flecainide [Tambocar] 100 mg PO Q12H 02/13/22 03/31/22 Fluticasone [Flonase] 1 sprays ROBYN DAILY 02/13/22 03/31/22 Furosemide [Lasix] 20 mg PO DAILY #10 tablet 02/13/22 03/31/22 Metoprolol Succinate [Toprol Xl] 12.5 mg PO DAILY 02/13/22 03/31/22 Acetaminophen [Tylenol] 500 mg PO Q6H PRN 03/31/22 03/31/22 Cholecalciferol [Vitamin D3] 10 mcg PO DAILY 03/31/22 03/31/22 Losartan Potassium 25 mg PO DAILY 03/31/22 03/31/22 Potassium Chloride 10 meq PO DAILY PRN 03/31/22 03/31/22 - Allergies Allergies/Adverse Reactions: Allergies Allergy/AdvReac Type Severity Reaction Status Date / Time erythromycin base Allergy Emesis Verified 03/31/22 06:22 - Social History Does the pt smoke?: No Smoking Status: Former smoker Does the pt drink ETOH?: Yes Does the pt have substance abuse?: No - Immunizations Immunizations are current?: Yes PD ED PE NORMAL - Vitals Vital signs reviewed: Yes - General General: Alert and oriented X 3, No acute distress, Well developed/nourished, Other (The patient is well-appearing and standing in the room upon my arrival. The patient stands throughout the history taking and initial part of the exam.) - HEENT HEENT: Atraumatic, PERRL, EOMI, Moist mucous membranes - Neck Neck: Supple, no meningeal sign - Cardiac Cardiac: RRR, No murmur, Strong equal pulses - Respiratory Respiratory: No respiratory distress, Clear bilaterally - Abdomen Abdomen: Soft, Non tender, Non distended - Back Back: Other (Minimal tenderness to palpation over the spine in the midline at L5-S1, and radiating out into the musculature.) - Derm Derm: Warm and dry, Other (Large area of older appearing ecchymosis in right inguinal area without mass or fluctuance. Femoral pulse is palpable and intact. 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 The location is consistent with prior bouts of back pain. The patient does not have any abdominal findings whatsoever, and her vital signs are normal. She is able to stand without difficulty and without any orthostatic symptoms. She does not have a pulsatile mass or mass of any kind in her inguinal area. I discussed with the patient that I feel the likelihood of aortic pathology, particularly rupture or dissection, is low. The location of the pain does not indicate this, and the lack of other findings, whether abdominal or hemodynamic, also argues against this. We have discussed that getting CT imaging is an option, though I feel this will be low yield at this point in time. 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 She states she would rather hold off on imaging and treat symptomatically. We have discussed that she should have a low threshold for return, should she develop any abdominal pain, lightheadedness that is worsening, syncopal episode, or increasingly severe back pain. She has been given a dose of prednisone and of Vicodin here in the emergency department and states she already has medication for pain at home. Departure - Departure Disposition: Home, Self Care Clinical Impression: Back pain Qualifiers: Back pain location: low back pain Chronicity: acute Back pain laterality: bilateral Sciatica presence: without sciatica Qualified Code(s): M54.50 - Low back pain, unspecified Condition: Stable Instructions: ED Neck Back Pain General Comments: At this point in time, your vital signs are normal, both with standing and laying, and your pain is most consistent with a mechanical cause. In terms of concern over potential arterial leakage after your procedure, the location of pain is very low for this. Additionally, the lack of abdominal findings of any kind would argue against this. The lack of unusual lightheadedness or any abnormal vital signs would also make this possibility much less likely. We have discussed the potential for getting imaging in the emergency department today, but you have opted not to do this at this time, which is reasonable. You may take your medication at home for pain, if needed. You should have a low threshold for return to the emergency department for reevaluation if anything worsens, particularly: Your back pain becomes much more severe; you develop abdominal pain that is worsening; or you develop increasing lightheadedness or faint. Otherwise, please follow-up with your doctor as scheduled.
[2022-03-31 08:10] VITALS: BP 132/58
== END 2022-03-31 08:10 | disposition home or self-care (01) ==
LOC: ED 05:57
DX: M54.50 Low back pain, unspecified (principal); I50.9 Heart failure, unspecified; Z79.01 Long term (current) use of anticoagulants; I48.91 Unspecified atrial fibrillation; Z87.891 Personal history of nicotine dependence
CPT/HCPCS: 99282; A9270; J7512

== ENCOUNTER 2022-10-09 08:29 | Outpatient (CLI) | payer MEDICARE, BC ==
--- NOTE | 2022-10-10 09:35 | Mammography Report ---
BILATERAL DIGITAL SCREENING MAMMOGRAM 3D/2D: 10/09/2022 CLINICAL: Routine screening. Comparison is made to exams dated: 12/28/2020 mammogram, 07/23/2018 mammogram - [facility], and 06/17/2012 mammogram - [facility]. Both breasts are almost entirely fatty (category a/<25% glandular tissue). There are benign masses in both breasts. No significant masses, calcifications, or other findings are seen in either breast. There has been no significant interval change. IMPRESSION: BENIGN There is no mammographic evidence of malignancy. A 1 year screening mammogram is recommended. Based on the Tyrer Cuzick model (a risk assessment model) the patients lifetime risk is 10.1% and he r 10 year risk is 7.6%. According to the ACR, ACS, and NCCN guidelines, an annual breast MRI exam mouna ng with mammogram is recommended if the patients lifetime risk is 20% or greater. This exam was interpreted at Station ID: [id number]. NOTE: For mammograms, a report in lay terms will be sent to the patient. Approximately 15% of breast malignancies will not be visualized mammographically. In the management of a palpable breast mass, a negative mammogram must not discourage biopsy of a clinically suspicious lesion. Electronically Signed By: Daniel wallace/aparna:10/09/2022 12:38:17 letter sent: No_Letter ACR BI-RADS Category 2: Benign Finding(s) 3342F PARENCHYMAL PATTERN: (F) - The breast(s) demonstrate(s) diffuse fatty replacement. BI-RADS CATEGORY: (2) - 2 Mammogram [id number] 1 year screening LATERALITY: (B)
== END 2022-10-09 08:30 | disposition home or self-care (01) ==
LOC: DI 08:29
PROVIDERS: ATTEND Internal Medicine
DX: Z12.31 Encounter for screening mammogram for malignant neoplasm of breast (principal)

== ENCOUNTER 2022-11-28 12:55 | Outpatient (CLI) | payer MEDICARE, BC ==
[2022-11-28 13:14] LABS: BASOPHILS % (AUTO) 0.7 %; EOSINOPHILS # (AUTO) 0.1 10^3/uL (0.0-0.7); EOSINOPHILS % (AUTO) 2.2 %; HCT - HEMATOCRIT 38.9 % (37.0-47.0); HGB - HEMOGLOBIN 12.6 g/dL (12.0-16.0); LYMPHOCYTES # (AUTO) 1.6 10^3/uL (1.5-3.5); MEAN CORPUSCULAR HEMOGLOBIN 28.3 pg (27.0-31.0); MEAN CORPUSCULAR HGB CONC 32.4 g/dL (32.0-36.0); MEAN CORPUSCULAR VOLUME 87.2 fL (81.0-99.0); MONOCYTES # (AUTO) 0.5 10^3/uL (0.0-1.0); NEUTROPHILS # (AUTO) 3.8 10^3/uL (1.5-6.6); NEUTROPHILS % (AUTO) 62.9 %; PLT - PLATELET COUNT 225 10^3/uL (130-450); RED BLOOD COUNT 4.46 10^6/uL (4.20-5.40); RED CELL DISTRIBUTION WIDTH 13.7 % (12.0-15.0)
[2022-11-28 13:21] LABS: INR 1.3 (0.8-1.2); PT - PROTHROMBIN TIME 14.6 secs (9.9-12.6)
[2022-11-28 13:26] LABS: CALCIUM 9.6 mg/dL (8.5-10.3); POTASSIUM 4.3 mmol/L (3.5-4.5)
== END 2022-11-28 12:56 | disposition home or self-care (01) ==
LOC: LAB 12:55
PROVIDERS: ATTEND Specialist
DX: I48.0 Paroxysmal atrial fibrillation (principal); Q21.10 Atrial septal defect, unspecified
CPT/HCPCS: 36415; 80048; 85025; 85610

== ENCOUNTER 2022-12-21 15:12 | Emergency (ER) | payer MEDICARE, BC ==
--- NOTE | 2022-12-21 15:39 | ED Physician Documentation ---
History of Present Illness - Stated complaint Stated Complaint: BLEEDING WOUND/BLOOD THINNER - Chief complaint Chief Complaint: Wound - History obtained from History obtained from: Patient - History of Present Illness Timing: Today Pain level max: 0 Pain level now: 0 - Additonal information Additional information: Patient is a 72-year-old female who states that she had a angiogram several months ago and they went in through the left groin. She states that she has had a lump at that spot ever since. She states that she saw her applications support lead last week and he was not concerned about the lump. Today she states that there has been drainage from the area, she states that looks like "old blood". Nothing makes it better or worse. She is on a blood thinner at home. No fevers. No chills. No redness. 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 HEENT: Other - Present Medications Home Medications: Ambulatory Orders Medication Instructions Recorded Confirmed Apixaban [Eliquis] 5 mg PO BID 10/03/18 12/21/22 Atorvastatin [Lipitor] 20 mg ORAL DAILY 02/13/22 12/21/22 Flecainide [Tambocar] 100 mg PO Q12H 02/13/22 12/21/22 Fluticasone [Flonase] 1 sprays ROBYN DAILY PRN 02/13/22 12/21/22 Furosemide [Lasix] 20 mg PO DAILY #10 tablet 02/13/22 12/21/22 Metoprolol Succinate [Toprol Xl] 25 mg PO BID 02/13/22 12/21/22 Acetaminophen [Tylenol] 500 mg PO Q6H PRN 03/31/22 12/21/22 Cholecalciferol [Vitamin D3] 10 mcg PO DAILY 03/31/22 12/21/22 Losartan Potassium 25 mg PO DAILY 03/31/22 12/21/22 Multivitamin 1 tab ORAL DAILY 12/21/22 12/21/22 Spironolactone [Aldactone] 12.5 mg PO DAILY 12/21/22 12/21/22 - Allergies Allergies/Adverse Reactions: Allergies Allergy/AdvReac Type Severity Reaction Status Date / Time erythromycin base Allergy Emesis Verified 12/21/22 15:18 - Social History Does the pt smoke?: No Smoking Status: Former smoker Does the pt drink ETOH?: Yes Does the pt have substance abuse?: No - Immunizations Immunizations are current?: Yes PD ED PE NORMAL - Vitals Vital signs reviewed: Yes - General General: Alert and oriented X 3, No acute distress - Derm Derm: Warm and dry - Extremities Extremities: Other (L groin - There is a small amount of serosanguineous fluid leaking from the left groin. No purulence. No fluctuance.) - Neuro Neuro: Alert and oriented X 3 - Psych Psych: Normal mood, Normal affect Results - Vitals Vitals: Vital Signs - 24 hr 12/21/22 12/21/22 12/21/22 15:18 16:06 17:09 Temperature 36.5 C 37.0 C Heart Rate 70 82 81 Respiratory 16 16 12 Rate Blood Pressure 128/80 129/55 L 111/79 O2 Saturation 100 96 97 Oxygen O2 Source Room air - Rads (name of study) Ultrasound left groin Relevant Findings:: Final report received, See rad report PD Medical Decision Making - ED course Complexity details: reviewed results, re-evaluated patient, considered differential, d/w patient, d/w family ED course: 72-year-old female with what appears to be a small postoperative seroma versus hematoma. This drained spontaneously in the emergency department. Ultrasound was performed to ensure that there was no vascularity or evidence of pseudoaneurysm. A small amount of Dermabond was applied over the area that is draining and there is no further drainage. We will have her follow-up with her applications support lead for further care. She will return if she worsens. Patient co unseled regarding signs and symptoms for which I believe and urgent re- evaluation would be necessary. Patient with good understanding of and agreement to plan and is comfortable going home at this time This document was made in part using voice recognition software. While efforts are made to proofread this document, sound alike and grammatical errors may occur. Departure - Departure Disposition: 01 Home, Self Care Clinical Impression: Seroma after procedure Condition: Good Instructions: ED Seroma Post Op Follow-Up: your,doctor in 3 days for wound check [Other] Comments: Please follow-up with your doctor for further care. Please return if you worsen. This appears to have been a postoperative seroma that has ruptured. Your ultrasound does not show any evidence of pseudoaneurysm. Forms: PCP List Discharge Date/Time: 12/21/22 17:24
[2022-12-21 17:17] VITALS: BP 111/79; O2SAT 97
--- NOTE | 2022-12-21 18:37 | Ultrasound Report ---
PROCEDURE: Duplex Lwr Ext Arterial LT INDICATIONS: L angiogram site bleeding, check pseudoaneurysm? TECHNIQUE: Color and pulse Doppler interrogation was performed of the left lower extremity arterial system, with image documentation. COMPARISON: None FINDINGS: Anterior concern, there is a 3.0 x 1.0 x 2.2 subdermal heterogenous hypoechoic echogenicity consisten t with hematoma. No vascularity. No evidence of pseudoaneurysm IMPRESSION: Soft tissue hematoma without evidence of pseudoaneurysm Reviewed by: Balta Rosenbaum MD on 12/21/2022 5:36 PM AKSHARAN Approved by: Balta Rosenbaum MD on 12/21/2022 5:36 PM AKDT Station ID: [id number]
== END 2022-12-21 17:24 | disposition home or self-care (01) ==
LOC: ED 15:12
DX: L76.34 Postprocedural seroma of skin and subcutaneous tissue following other procedure (principal); I50.9 Heart failure, unspecified; I48.91 Unspecified atrial fibrillation; Z79.01 Long term (current) use of anticoagulants; Z79.899 Other long term (current) drug therapy; Z87.891 Personal history of nicotine dependence
CPT/HCPCS: 99283; 99284

== ENCOUNTER 2023-08-31 08:19 | Outpatient (CLI) | payer MEDICARE, BC ==
--- NOTE | 2023-08-31 11:55 | Ultrasound Report ---
PROCEDURE: Abdomen Limited INDICATIONS: LIVER CYSTS, HEPATIC CYSTS TECHNIQUE: Real-time focused scanning was performed of the abdomen, with image documentation. COMPARISONS: CT 09/23/2019 FINDINGS: Liver: Liver is normal in size and homogeneous in echotexture. Multiple hepatic cysts are again seen , without internal complexity. Largest measures 6.5 x 4.7 x 7.7 cm in segment 2. Gallbladder: Absent. Biliary ducts: Intrahepatic bile ducts are non-dilated. Extrahepatic bile duct caliber measures 2 m m. Normal is 6-7 mm or less in diameter, or 10 mm or less post-cholecystectomy. Pancreas: Visualized portions of the pancreas are sonographically normal. Right kidney: Normal in size and echotexture. Right kidney measures 9.1 cm long. No hydronephrosis o r nephrolithiasis. No solid masses. No complex renal cystic lesions which require follow-up. IVC: Intrahepatic inferior vena cava is patent. Miscellaneous: No free abdominal fluid. IMPRESSION: Similar noncomplex hepatic cysts, without suspicious features. Reviewed by: Miguel Ramirez MD on 08/31/2023 11:54 AM PDT Approved by: Miguel Ramirez MD on 08/31/2023 11:54 AM PDT Station ID: [id number]
== END 2023-08-31 08:20 | disposition home or self-care (01) ==
LOC: DI 08:19
PROVIDERS: ATTEND Internal Medicine
DX: K76.89 Other specified diseases of liver (principal)

== ENCOUNTER 2024-01-04 09:24 | Outpatient (CLI) | payer MEDICARE, BC ==
[2024-01-04 09:41] LABS: BASOPHILS % (AUTO) 0.5 %; EOSINOPHILS # (AUTO) 0.1 10^3/uL (0.0-0.7); EOSINOPHILS % (AUTO) 2.2 %; HCT - HEMATOCRIT 40.5 % (37.0-47.0); HGB - HEMOGLOBIN 13.3 g/dL (12.0-16.0); LYMPHOCYTES # (AUTO) 1.7 10^3/uL (1.5-3.5); LYMPHOCYTES % (AUTO) 29.2 %; MEAN CORPUSCULAR HEMOGLOBIN 29.4 pg (27.0-31.0); MEAN CORPUSCULAR HGB CONC 32.8 g/dL (32.0-36.0); MEAN CORPUSCULAR VOLUME 89.4 fL (81.0-99.0); MEAN PLATELET VOLUME 9.9 fL (7.9-10.8); MONOCYTES # (AUTO) 0.5 10^3/uL (0.0-1.0); MONOCYTES % (AUTO) 8.7 %; NEUTROPHILS # (AUTO) 3.5 10^3/uL (1.5-6.6); NEUTROPHILS % (AUTO) 59.1 %; PLT - PLATELET COUNT 205 10^3/uL (130-450); RED BLOOD COUNT 4.53 10^6/uL (4.20-5.40); RED CELL DISTRIBUTION WIDTH 12.8 % (12.0-15.0); WHITE BLOOD COUNT 5.9 x10^3/uL (4.8-10.8)
[2024-01-04 09:55] LABS: ALBUMIN 4.5 g/dL (3.2-5.5); ALBUMIN/GLOBULIN RATIO 1.8 (1.0-2.2); ALKALINE PHOSPHATASE 101 IU/L (42-121); ALT ALANINE AMINOTRANSFERASE 15 IU/L (10-60); AST ASPARTATE AMINOTRANSFERASE 20 IU/L (10-42); BILIRUBIN,TOTAL 0.8 mg/dL (0.2-1.0); BUN - BLOOD UREA NITROGEN 18 mg/dL (6-20); CALCIUM 9.7 mg/dL (8.5-10.3); CARBON DIOXIDE - CO2 29 mmol/L (21-32); CHLORIDE 99 mmol/L (101-111); CHOL/HDL RATIO 1.9 (<4.4); CHOLESTEROL 143 mg/dL; CREATININE 0.9 mg/dL (0.6-1.3); GFR - MDRD 61 (>89); GLUCOSE 105 mg/dL (74-104); HDL CHOLESTEROL 74 mg/dL; LDL CHOLESTEROL,CALCULATED 48 mg/dL; LDL/HDL RATIO 0.6 (<4.4); POTASSIUM 4.4 mmol/L (3.5-4.5); SODIUM 133 mmol/L (135-145); TRIGLYCERIDES 105 mg/dL; VLDL CHOLESTEROL 21 mg/dL
[2024-01-04 11:31] LABS: ESTIMATED AVERAGE GLUCOSE 120 mg/dL (70-100); HEMOGLOBIN A1c% 5.8 % (4.27-6.07)
== END 2024-01-04 09:25 | disposition home or self-care (01) ==
LOC: LAB 09:24
PROVIDERS: ATTEND Nurse Practitioner Adult Health
DX: Z00.00 Encounter for general adult medical examination without abnormal findings (principal); R73.03 Prediabetes; Z13.6 Encounter for screening for cardiovascular disorders
CPT/HCPCS: 36415; 80053; 80061; 83036; 83721; 85025

== ENCOUNTER 2025-03-27 15:35 | Observation (INO) ==
--- NOTE | 2025-03-27 16:02 | ED Physician Documentation ---
PD HPI ABD PAIN Stated complaint Stated Complaint: ABD PX, BLOATING Chief complaint Chief Complaint: Abd Pain Additional information Additional information: 74-year-old female with history of umbilical hernia surgery repair when she was 9 months old, history of cholecystectomy, tubal ligation presents emergency department with abdominal pain that started today. Patient says that she feels very bloated and pain has been increasing in severity with nausea and no vomiting. She is not sure if she is having fevers or chills but does not believe she has had any fevers or chills. No appetite. Meds/Allgy Home Medications Ambulatory Orders Medication Instructions Recorded Confirmed atorvastatin 20 mg tablet 20 mg ORAL DAILY 02/13/22 losartan 25 mg tablet 25 mg PO DAILY 03/31/2203/13 multivitamin 1 tab ORAL DAILY 12/21/22 aspirin 81 mg tablet,delayed 81 mg PO DAILY 02/17/24 1 05/28/24 release (Adult Low Dose Aspirin) paskesb-wwfjaqzld-mzve 333 mg-133 1 tab PO DAILY 02/1603/27/25 mg-5 mg tablet biotin 10,000 mcg capsule mcg PO 11/07/24 02/14/25 furosemide 20 mg tablet (Lasix) 20 mg PO .OD every oth er day 11/07/24 03/27/25Thursday loratadine 10 mg tablet (Claritin) 10 mg PO QDAY 11/0703/27/25 metoprolol succinate 25 mg 25 mg PO QDAY 11/07/2403/13 tablet,extended release 24 hr spironolactone 25 mg tablet 25 mg PO DAILY 11/07/24 (Aldactone) meclizine 25 mg tablet 25 mg PO QDAY PRN dizziness #20 01/01/25 03/27/25 tabs magnesium L-threonate 48 mg 48 mg PO 01/25/25 02/14/25 magnesium (667 mg) capsule flecainide 50 mg tablet 100 mg PO BID 02/14/2503/27 Allergies Allergies Allergy/AdvReac Type Severity Reaction Status Date / Time erythromycin base AdvReac Emesis Verified 03/27/25 15:44 PFSH Active Problems All Active Problems (Updated 03/27/25 @ 18:51 by Keshawn Brown DNP) Small bowel obstruction (Acute) Medicare annual wellness visit, initial (Acute) Chronic hyponatremia (Acute) Vertigo (Acute) Encounter to establish care with new provider (Acute) Atrial fibrillation with RVR (Acute) Medical History Medical History (Updated 03/27/25 @ 18:51 by Keshawn Brown DNP) History of transesophageal echocardiography (BOOGIE) x3 FH: cholecystectomy 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 Sleep apnea treated with continuous positive airway pressure (CPAP) Hypertension Dry mouth History of atrial septal defect Heart valve disorder Paroxysmal A-fib Surgical History Surgical History (Updated 11/07/24 @ 12:09 by Rayna Rojas NP) H/O congenital atrial septal defect (ASD) repair at age 19, then an ASD plug, mitral valve clamp and tricuspid clamp in her 70's History of vocal cord polypectomy x3 H/O parotidectomy Family History Family History (Updated 11/07/24 @ 11:08 by Nathalie Centeno RN, BSN) Mother Cancer Father COPD (chronic obstructive pulmonary disease) Sister No problems noted. Brother No problems noted. Brother No problems noted. Social History Social History (Updated 03/27/25 @ 15:56 by Mirza Goetz, RN, BSN) Smoking Status: Former smoker Number of Years Smoked: 10 How many cigarettes a day do you smoke? (20 cigarettes=1 Pk): 10 Do you vape?: No Do you feel safe in your home environment?: Yes History of physical, verbal, emotional, or financial abuse?: No Frequency: Occasional Substance Use: denies use POLST Patient has POLST: Yes POLST on file?: Yes POLST CPR Status: Do Not Attempt Resuscitation (DNAR) / Allow Natural Exam Exam Vital Signs: Vital Signs x48h Temp Pulse Resp BP Pulse Ox 03/27/25 17:47 90 18 135/98 H 98 03/27/25 15:44 36.8 C 95 16 139/79 H 96 Constitutional normal general appearance, no apparent distress, average body habitus, no limitations and alert HENMT normocephalic and head/scalp atraumatic Eyes PERRL Neck/C-Spine visual inspection normal Lymph no lymphadenopathy noted Chest inspection of chest normal and palpation of chest normal Respiratory breath sounds equal bilaterally Cardiovascular normal heart rate noted Gastrointestinal abdomen abnormal to inspection (bloated), tender to palpation (generalized) (moderate), distended (distended) and abnormal bowel sounds noted (hypoactive bowel sounds) Genitourinary no CVA tenderness Back/Pelvis spine normal to inspection Extremities normal to inspection Skin skin color normal Results Vitals Vitals: Vital Signs - 24 hr 03/27/25 15:44 03/27/25 17:01 03/27/25 17:47 Temperature 36.8 C Temperature Source Temporal Artery Scan Pulse Rate 95 90 Respiratory Rate 16 18 Blood Pressure 139/79 H 135/98 H O2 Saturation 96 98 O2 Source Room air Room air Pain Intensity 5 5 0 Oxygen O2 Source Room air Labs Labs: Laboratory Tests 03/27/25 03/27/25 03/27/25 16:09 16:10 18:14 WBC 6.1 RBC 4.75 Hgb 14.1 Hct 42.7 MCV 89.9 MCH 29.7 MCHC 33.0 RDW 12.3 Plt Count 169 MPV 10.6 Neut # (Auto) 4.8 Lymph # (Auto) 0.8 L [place] # (Auto) 0.4 Eos # (Auto) 0.1 Baso # (Auto) 0.0 Absolute Nucleated RBC 0.00 Nucleated RBC % 0.0 Sodium 136 Potassium 3.9 Chloride 97 L Carbon Dioxide 31 Anion Gap 8.0 BUN 21 H Creatinine 1.0 Estimated GFR (MDRD) 54 L Glucose 100 Lactic Acid 0.7 Calcium 9.8 Total Bilirubin 0.9 AST 26 ALT 21 Alkaline Phosphatase 74 Total Protein 7.4 Albumin 4.7 Globulin 2.7 Albumin/Globulin Ratio 1.7 Lipase 23 Urine Color YELLOW Urine Clarity CLEAR Urine pH 5.5 Ur Specific [place] >=1.030 H Urine Protein TRACE Urine Glucose (UA) NEGATIVE Urine Ketones 15 H Urine Occult Blood TRACE-INTACT Urine Nitrite NEGATIVE Urine Bilirubin NEGATIVE Urine Urobilinogen 0.2 (NORMAL) Ur Leukocyte Esterase NEGATIVE Ur Microscopic Review NOT INDICATED Urine Culture Comments NOT INDICATED Rads (name of study) CT abdomen pelvis with: Relevant Findings:: Final report received and EMP independent interpretation of test Interpretation: IMPRESSION: Suspect early bowel obstruction: Mildly dilated loops of mid and distal small bowel, with transition point seen in the distal ileum. Mild adjacent reactive fluid in the right lower quadrant. Cardiomegaly. Other findings above. PD Medical Decision Making ED course Complexity details: d/w inside solar sales consultant (Dr. Scherer) ED course: 74-year-old female comes into the emergency department with severe worsening abdominal pain. Differentials include but not limited to appendicitis, diverticulitis, small bowel obstruction, UTI. Labs are complete for further evaluation no leukocytosis male acute electrolyte abnormalities. Patient was given some Zofran and Dilaudid to help with symptoms which significantly improved symptoms. She is quite distended in her abdomen and does have some decreased bowel tones CT abdomen pelvis with contrast was completed further evaluation and does reveal suspected early bowel obstruction with mildly dilated loops of mid and distal small bowel with transition point seen in the distal ileum. She also has mild adjacent reactive fluid in the right lower quadrant with some cardiomegaly. Consulted Dr. Scherer who was able to evaluate the imaging and given the distended abdomen she is agreeable to consult with hospitalist for admission. Hospitalist came to evaluate the patient and they have graciously agreed to admit the patient for further hospitalization and workup. Discharge Plan Discharge Patient Disposition: 66 [facility] DC/Xfer Condition: Good Clinical Impression: Small bowel obstruction
[2025-03-27 16:15] LABS: HCT - HEMATOCRIT 42.7 % (37.0-47.0); HGB - HEMOGLOBIN 14.1 g/dL (12.0-16.0); MEAN PLATELET VOLUME 10.6 fL (7.9-10.8); NRBC ABSOLUTE COUNT (AUTO) 0.00 x10^3/uL; NUCLEATED RED BLOOD CELLS AUTO 0.0 /100WBC; PLT - PLATELET COUNT 169 10^3/uL (130-450); RED CELL DISTRIBUTION WIDTH 12.3 % (12.0-15.0)
--- OUTSIDE RECORDS SUMMARY | 2025-03-27 16:24 | EXTERNAL MEDICAL SUMMARY RPT | Continuity of Care Document ---
Author Organization [place] Address [address] [place] [id number] Phone Allergies and Intolerances date description facility reaction severity 2024-11-07 10:00 [id number]^erythromy nikki base^^erythromycin base^^allergy.id [facility] Emesis (no severity) 2024-12-28 10:00 [id number]^erythromy nikki base^^erythromycin base^^[facility] Emesis (no severity) 2025-01-25 10:00 [id number]^erythromy nikki base^^erythromycin base^^allergy.id [facility] Emesis (no severity) 2025-02-14 10:00 [id number]^erythromy nikki base^^erythromycin base^^allergy.id [facility] Emesis (no severity) 2025-03-27 10:00 [id number]^erythromy nikki base^^erythromycin base^^allergy.id [facility] Emesis (no severity) Problems date description facility 2024-12-28 16:21 Dizziness and giddiness [facility] 2024-12-29 00:02 Dizziness and giddiness [facility] 2025-01-02 06:48 Endocarditis, valve unspecified [facility] 2025-01-02 06:48 Unspecified atrial fibrillation [facility] 2025-01-02 06:48 Presence of other cardiac impla nts and grafts [facility] 2025-01-04 11:49 Endocarditis, valve unspecified [facility] 2025-01-04 11:49 Unspecified atrial fibrillation [facility] 2025-01-04 11:49 Presence of other cardiac impla nts and grafts [facility] 2025-01-04 11:54 Endocarditis, valve unspecified [facility] 2025-01-04 11:54 Unspecified atrial fibrillation [facility] 2025-01-04 11:54 Presence of other cardiac impla nts and grafts [facility] 2025-01-07 07:58 Endocarditis, valve unspecified [facility] 2025-01-07 07:58 Unspecified atrial fibrillation [facility] 2025-01-07 07:58 Presence of other cardiac impla nts and grafts [facility] 2025-01-08 00:01 Endocarditis, valve unspecified [facility] 2025-01-08 00:01 Unspecified atrial fibrillation [facility] 2025-01-08 00:01 Presence of other cardiac impla nts and grafts [facility] 2025-01-25 14:41 Hypo-osmolality and hyponatremi a [facility] 2025-01-25 14:41 Nonrheumatic mitral (valve) ins ufficiency [facility] 2025-01-25 14:41 Unspecified atrial fibrillation [facility] 2025-01-25 14:41 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 [facility] 2025-01-25 14:41 Dizziness and giddiness [facility] 2025-01-25 14:41 Personal history of other medic al treatment [facility] 2025-01-25 14:41 Presence of other cardiac impla nts and grafts [facility] 2025-01-26 00:01 Hypo-osmolality and hyponatremi a [facility] 2025-01-26 00:01 Nonrheumatic mitral (valve) ins uffiency [facility] 2025-01-26 00:01 Unspecified atrial fibrillation [facility] 2025-01-26 00:01 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 [facility] 2025-01-26 00:01 Personal history of other medic al treatment [facility] 2025-01-26 00:01 Presence of other cardiac impla nts and grafts [facility] 2025-02-15 00:02 Encounter for genera adult medical examination without abnormal findings [facility] 2025-02-15 00:02 Other specified counseling [facility] 2025-03-16 09:31 Acute systolic (congestive) hea rt failure [facility] 2025-03-17 00:05 Acute systolic (congestive) hea rt failure [facility] Results/Labs test date facility value unit notes Result panel 1 CREATININE 2025-03-16 09:41 [facility] 1.2 mg/dl As of October 2022 testing method has changed, this may include reference ranges. GLUCOSE 2025-03-16 09:41 [facility] 111 mg/dl As of October 2022 testing method has changed, this may include reference ranges. SODIUM 2025-03-16 09:41 [facility] 136 mmol/l (missing) BUN - BLOOD UREA NITROGEN 2025-03-16 09:41 [facility] 18 mg/dl As of Oct testing method has changed, this may include reference ranges. CARBON DIOXIDE - CO2 2025-03-16 09:41 [facility] 31 mmol/l As of Oct testing method has changed, this may include reference ranges. POTASSIUM 2025-03-16 09:41 [facility] 4.5 mmol/l As of October 2022 testing method has changed, this may include reference ranges. GFR - MDRD 2025-03-16 09:41 [facility] 44 (missin g) The IDMS-traceable MDRD Study Equation has been validated extensively in and populations between the ages of 18 and 70 with impaired kidney function (eGFR < 60 mL/min/1.73m2) and has shown good performance for patients with all common causes of kidney disease. Although this equation has not been validated for patients older than 70, an MDRD-derived eGFR may still be a useful tool for providers caring for patients older than 70. References: http://www.nkdep.nih .gov/lab-evaluation/ gfr/creatinine-stand ardization, last updated June 2011. ANION GAP 2025-03-16 09:41 [facility] 6.0 (missing ) (missing) CALCIUM 2025-03-16 09:41 [facility] 9.7 mg/dl As of October 2022 testing method has changed, this may include reference ranges. CHLORIDE 2025-03-16 09:41 [facility] 99 mmol/l As of October 2022 testing method has changed, this may include reference ranges. NT-proBNP 2025-03-16 09:41 [facility] 990 pg/ml The following cut-points have been suggested for the use of proBNP for the diagnostic evaluation of heart failure (HF) in patients with acute dyspnea: Modality Age Optimal Cut (years) Point Diagnosis (rule in HF) <50 450 pg/mL 50 - 75 900 pg/mL >75 1800 pg/mL Exclusion (rule out HF) Age independent 300 pg/mL Performed at: [facility] [address], [address], [place], [place] [id number] Economics Teacher: Prasad Lynch MD, Phone: [phone] Social History date description facility
[2025-03-27 16:30] LABS: GLUCOSE, URINE (UA) NEGATIVE (NEGATIVE); KETONES,URINE (UA) 15 mg/dL (NEGATIVE); OCCULT BLOOD,URINE TRACE-INTACT (NEGATIVE)
[2025-03-27 16:37] LABS: ALT ALANINE AMINOTRANSFERASE 21.0 IU/L (10-60); AST ASPARTATE AMINOTRANSFERASE 26.0 IU/L (10-42); BUN - BLOOD UREA NITROGEN 21.0 mg/dL (6-20); CARBON DIOXIDE - CO2 31.0 mmol/L (21-32); CREATININE 1.0 mg/dL (0.6-1.3); GFR - MDRD 54.0 (>89)
[2025-03-27] MEDS: SODIUM CHLORIDE 0.9% 500 ML IV ONE (17:01)
[2025-03-27] MEDS: HYDROmorphone 0.5 MG/0.5 ML SYRINGE IVP STA (17:01)
[2025-03-27] MEDS: ONDANSETRON 4 MG/2 ML VIAL IVP STA (17:01)
--- NOTE | 2025-03-27 17:45 | CT Report ---
PROCEDURE: CT Abdomen/Pelvis W INDICATIONS: non localized abdominal pain CONTRAST: Omni 300 100ml TECHNIQUE: After the administration of intravenous contrast, a CT scan of the abdomen and pelvis was performed. Images were recorded and evaluated at appropriate window settings. Reformats: coronal and sagittal. For radiation dose reduction, the following was used: automated exposure control, adjustment of mA and/or kV according to patient size. COMPARISON: 09/23/2019 FINDINGS: Image quality: Diagnostic Lower chest: Small left fat-containing Bochdalek hernia. Unremarkable lung bases. Cardiomegaly. Partially seen cardiac devices. Liver: Liver cysts are present, some with septations. No definite enhancing nodule. Gallbladder and biliary system: 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 clips, mildly ectatic biliary system likely related to postsurgical state Pancreas: No ductal dilation Spleen: Subcentimeter lesion is seen in the lower pole, too small to characterize, possibly a cyst or hemangioma. Focal scarring in the mid region also again seen, which may be from prior infarct Adrenals: No discrete nodules Kidneys: No solid renal mass or hydronephrosis Vessels and lymph nodes: The main portal vein is patent. No abdominal duct aneurysm. No lymph nodes enlarged by size criteria. Bowel and peritoneum: Gastric distention, mild to moderate. No bowel obstruction. Colonic diverticula. Nondilated appendix. Mildly dilated loops of mid and distal small bowel are present, with fecalized material in the right lower quadrant. Transition to underdistended small bowel is seen in the distal ileum. No drainable abscess or ascites. Mild edema and fluid is seen in the right lower quadrant. Pelvis: Reproductive organs are unremarkable on limited CT evaluation. Calcification again seen at the left adnexa. Bladder is under distended. Bones: No aggressive appearing osseous abnormality. IMPRESSION: Suspect early bowel obstruction: Mildly dilated loops of mid and distal small bowel, with transition point seen in the distal ileum. Mild adjacent reactive fluid in the right lower quadrant. Cardiomegaly. Other findings above. Reviewed by: Daniel Perez MD on 03/27/2025 5:42 PM PST Approved by: Daniel Perez MD on 03/27/2025 5:42 PM PST Station ID: [id number]
--- NOTE | 2025-03-27 18:48 | HISTORY & PHYSICAL EXAMINATION ---
Chief Complaint Chief Complaint Chief Complaint: crampy abdominal pain History of Present Illness Admitted From Admitted From:: home History Obtained From Records Reviewed: PCP notes History obtained from: Patient History of Present Illness HPI Comment/Other: 74F w PMHx HFpEF, congential heart disease, a fib s/p Watchman, HTN, HLD, sleep apnea who presents to the ED with cramping abdominal pain that started at mid morning. She has also had nausea but no vomiting. she denies flatus, and is belching repeatedly. She has been having mushy/looser than normal BMs today with most recent one being at about 1330. She has a past surgical hx of cholecystectomy. she denies hx of SBO. She was in her usual state of health until this mid morning. She thought that she was hungry, and ate some bread and some cereal. She then became more and more nauseated. She has not vomited, but she feels like she wants to. Her abdomen feels bloated. She has a PMHx of structural heart disease, with mulitple procedures in her late teens/early adult life. She then developed CHF and atrial fib more recently. Last echocardiogram dated 01/16/[address] [facility], copy scanned into the chart. Right and left ventricular systolic functions mildly reduced. Ejection fraction documented at 45 to 50%, severe dilation of the left atrium the mitral clip looks to be in good position, the atrial septum told device also looks to be in good position.. Mildly elevated RVSP, 35 mmHg. She is on Lasix 20 mg Thursday, spironolactone daily as well as metoprolol daily. She likes to take her diuretics in the evening as she stays way too busy during the day and she does not like how having to urinate limits her activities. She lives at home with her daughter, son-in-law and grandson. She has supportive family around her . [place] a POLST status listed on the chart. The patient vehemently wants DNR DNI selective treatment with a focus on comfort not prolongation of life. I cannot find the scanned document. Meds/Allgy Home Medications Ambulatory Orders Medication Instructions Recorded Confirmed atorvastatin 20 mg tablet 20 mg ORAL DAILY 02/13/22 losartan 25 mg tablet 25 mg PO DAILY 03/31/2203/13 multivitamin 1 tab ORAL DAILY 12/21/22 aspirin 81 mg tablet,delayed 81 mg PO DAILY 02/17/24 1 05/28/24 release (Adult Low Dose Aspirin) [id number] 333 mg-133 1 tab PO DAILY 02/1603/27/25 mg-5 mg tablet biotin 10,000 mcg capsule mcg PO 11/07/24 02/14/25 furosemide 20 mg tablet (Lasix) 20 mg PO .OD every oth er day 11/07/24 03/27/25Thursday loratadine 10 mg tablet (Claritin) 10 mg PO QDAY 11/0703/27/25 metoprolol succinate 25 mg 25 mg PO QDAY 11/07/2403/13 tablet,extended release 24 hr spironolactone 25 mg tablet 25 mg PO DAILY 11/07/24 (Aldactone) meclizine 25 mg tablet 25 mg PO QDAY PRN dizziness #20 01/01/25 03/27/25 tabs magnesium L-threonate 48 mg 48 mg PO 01/25/25 02/14/25 magnesium (667 mg) capsule flecainide 50 mg tablet 100 mg PO BID 02/14/2503/27 Allergies Allergies Allergy/AdvReac Type Severity Reaction Status Date / Time erythromycin base AdvReac Emesis Verified 03/27/25 15:44 PFSH Active Problems All Active Problems (Updated 03/27/25 @ 20:20 by ENRRIQUE Schulte) Heart failure with preserved ejection fraction (Acute) Hypertension (Chronic) Hyperlipidemia (Chronic) Atrial fibrillation (Chronic) Small bowel obstruction (Acute) Medicare annual wellness visit, initial (Acute) Chronic hyponatremia (Acute) Vertigo (Acute) Encounter to establish care with new provider (Acute) Atrial fibrillation with RVR (Acute) Medical History Medical History (Updated 03/27/25 @ 20:20 by ENRRIQUE Schulte) History of transesophageal echocardiography (BOOGIE) x3 FH: cholecystectomy 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 Brother No problems noted. Brother No problems noted. Social History Social History (Updated 03/27/25 @ 15:56 by Mirza Goetz, RN, BSN) Smoking Status: Former smoker Number of Years Smoked: 10 How many cigarettes a day do you smoke? (20 cigarettes=1 Pk): 10 Do you vape?: No Do you feel safe in your home environment?: Yes History of physical, verbal, emotional, or financial abuse?: No Frequency: Occasional Substance Use: denies use POLST Patient has POLST: Yes POLST on file?: Yes POLST CPR Status: Do Not Attempt Resuscitation (DNAR) / Allow Natural Review of Systems Status of ROS: 10 or more systems reviewed and unremarkable except as noted in history and below Prior Level of Functionality: independent adult. Exam Exam Vital Signs: Vital Signs x48h Temp Pulse Pulse Resp BP BP Pulse Ox 03/27/25 19:57 92 142/98 H 03/27/25 19:36 36.5 C 92 20 142/79 H 94 03/27/25 18:57 37.3 C 92 18 117/79 95 03/27/25 17:47 90 18 135/98 H 98 03/27/25 15:44 36.8 C 95 16 139/79 H 96 Constitutional normal general appearance, no apparent distress and average body habitus HENMT normocephalic and head/scalp atraumatic Eyes PERRL and conjunctivae normal Neck/C-Spine visual inspection normal and trachea midline Lymph no lymphadenopathy noted Chest inspection of chest normal Respiratory breath sounds equal bilaterally, normal respiratory effort and clear to auscultation bilaterally Cardiovascular normal heart rate noted, regular rhythm noted, no bruits noted, no additional abnormal heart sounds (I think this patient has an S4 on auscultation) and no edema Gastrointestinal prior to NG placement I am able to ausculated bowel tones. the abdomen is not tender, it is mildly distended. Extremities normal to inspection and normal to palpation Neurology no movement abnormality noted, no focal motor deficit noted and GCS 15 Psychiatry mental status grossly normal, oriented x3, thought process normal and cooperative Skin skin color normal Conclusion/Plan Problem List (1) Small bowel obstruction: Plan: presents to the ED with an approx 6 hour hx of abdominal discomfort, nausea and belching. Hx of cholecystectomy remotely. no hx bowel obs. last flatus much earlier in the day, but loose BMs around 1330 this afternoon. abdomen is soft, minimal distension with very minimal ttp. There are bowel tones present in the ED prior to NG placement. Ct read by radiology as early SBO with possible transition point in the distal ileum. There is a small amt of abdominal free fluid. Discussed with Dr Scherer, of General surgery, who beleives this should resolve with conservative treatment. Discussed with MICHELLE Patrick in the ED and the plan will be to admit this patient to observation status for non surgical managment of her SBO. NGT was placed in the ED. I have ordered this to be to LIS overnight. My plan will be to administer gastrografin through the NGT tomorrow AM. I expect the patient to have resolution of her symptoms shortly thereafter. I will further involve general surgery should her bowel obstruction not relieved with conservative measures. PPI started at admission and daily for GI bleed prophylaxis. (2) Heart failure with preserved ejection fraction: Plan: Last echocardiogram dated 01/16/[address] [facility], copy scanned into the chart. Right and left ventricular systolic functions mildly reduced. Ejection fraction documented at 45 to 50%, severe dilation of the left atrium the mitral clip looks to be in good position, the atrial septum told device also looks to be in good position.. Mildly elevated RVSP, 35 mmHg. I have also reviewed Dr. Lima's note from January of this year. She is on Lasix 20 mg Thursday, spironolactone 25 mg daily as well as metoprolol Succinate 25 mg daily. She likes to take her diuretics in the evening as she stays way too busy during the day and she does not like how having to urinate limits her activities. I have her on IV metoprolol this admission. I am giving her a small amount of IV Lasix this evening to try to keep all systems in balance. She has had reduced fluid intake today. In the emergency department she did not receive any fluid boluses. I will maintain her on LR at 100 m milliliters per hour overnight. While she is NPO. (3) Atrial fibrillation: Plan: She has a history of atrial fibrillation she is status post Watchman procedure and is therefore not on anticoagulation for CVA prevention. She is on metoprolol succinate 25 mg daily. I am placing her on IV metoprolol 2.5 mg IV every 6 hours for heart rate control. (4) Hyperlipidemia: Plan: Hold statin while inpatient (5) H/O congenital atrial septal defect (ASD) repair: Plan: History of median sternotomy for ASD repair in 1969. Patient has done well but has developed complications of CHF late in life. Plan I have spent 85 minutes in the care of this patient today. This includes time [id number], review and ordering of diagnostic imaging and laboratory studies and consultation with other providers. Monitoring the patient's signs symptoms, evaluation of medication effectiveness and patient's response to treatment. Lab Results Lab results reviewed: Yes 03/27/25 16:09 03/27/25 16:09 Diagnostic Imaging Results Diagnostic Imaging Results: positive Final report reviewed and Read independently Core Measures Anticipated LOS I expect patient to be DC'd or transferred within 96 hours.: Yes Issues Hospital Issues and Management Plan: Conservative nonsurgical management of small bowel obstruction under observation care. Plan is for NG tube decompression overnight with administration of Gastrografin in the morning. DVT/VTE - Prophylaxis VTE/DVT Device ordered at admit?: Yes VTE/DVT Prophylaxis med ordered at admit?: Yes
[2025-03-27] MEDS ORDERED: SODIUM CHLORIDE FLUSH 0.9% 10 ML SYRINGE IVP PRN (19:11)
[2025-03-27] MEDS ORDERED: PROCHLORPERAZINE 10 MG/2 ML VIAL IVP PRN (19:11)
[2025-03-27] MEDS ORDERED: ONDANSETRON 4 MG/2 ML VIAL IVP PRN (19:11)
--- NOTE | 2025-03-27 19:15 | XRAY Report ---
PROCEDURE: XR No-Charge 1V Abdomen INDICATIONS: NG tube placement TECHNIQUE: 1 view of the abdomen were acquired. COMPARISON: Same day CT FINDINGS AND IMPRESSION: Enteric tube is seen, terminating in the gastric body. The sideport is near the GE junction. Sternotomy wires. Contrast excretion is seen in the renal collecting system and urinary bladder. Partially seen cardiac device. Reviewed by: Daniel Perez MD on 03/27/2025 7:11 PM PST Approved by: Daniel Perez MD on 03/27/2025 7:11 PM PST Station ID: [id number]
[2025-03-27] MEDS: HYDROmorphone 0.5 MG/0.5 ML SYRINGE IVP PRN (19:26)
[2025-03-27] MEDS: LACTATED RINGERS 1,000 ML IV SCH (19:33)
[2025-03-27] MEDS: METOPROLOL 5 MG/5 ML VIAL IVP SCH (19:57)
[2025-03-27] MEDS: FUROSEMIDE 20 MG/2 ML VIAL IVP ONE (20:09)
[2025-03-27] MEDS: PANTOPRAZOLE 40 MG VIAL IVP ONE (22:44)
[2025-03-28] MEDS: SODIUM CHLORIDE FLUSH 0.9% 10 ML SYRINGE IVP SCH (00:34)
[2025-03-28] MEDS: ACETAMINOPHEN 1,000 MG/100 ML 1,000 MG/100 ML BAG IV PRN (01:42)
[2025-03-28 05:06] LABS: HCT - HEMATOCRIT 37.4 % (37.0-47.0); HGB - HEMOGLOBIN 12.3 g/dL (12.0-16.0); MEAN PLATELET VOLUME 11.1 fL (7.9-10.8); NRBC ABSOLUTE COUNT (AUTO) 0.00 x10^3/uL; NUCLEATED RED BLOOD CELLS AUTO 0.0 /100WBC; PLT - PLATELET COUNT 157 10^3/uL (130-450); RED CELL DISTRIBUTION WIDTH 12.5 % (12.0-15.0)
[2025-03-28 05:32] LABS: BUN - BLOOD UREA NITROGEN 19.0 mg/dL (6-20); CARBON DIOXIDE - CO2 28.0 mmol/L (21-32); CREATININE 1.0 mg/dL (0.6-1.3); GFR - MDRD 54.0 (>89)
[2025-03-28] MEDS: PANTOPRAZOLE 40 MG VIAL IVP SCH (06:29)
[2025-03-28] MEDS ORDERED: DIATR MEGLU/DIATRIZOATE SODIUM 120 ML BOTTLE ONE (07:47)
[2025-03-28] MEDS: ENOXAPARIN 40 MG/0.4 ML SYRINGE SUBQ SCH (08:42)
--- NOTE | 2025-03-28 12:01 | Discharge Summary ---
Discharge Summary Admit Date: 03/27/25 Discharge Date: 03/28/25 Discharging Provider: Sumaya Sepulveda PA-C Primary Care Provider: MICHELLE Carrera Code Status: Do Not Attempt Resuscitation DIAGNOSES Discharge Diagnoses with Status of Each Condition: Small bowel obstruction, resolved with conservative managment. HFpEF. chronic and stable. a fib, s/p Watchman, chronic and stable Hyperlipidemia, chronic h/o congential ASD repair. HPI History of Present Illness: 74F w PMHx HFpEF, congential heart disease, a fib s/p Watchman, HTN, HLD, sleep apnea who presents to the ED with cramping abdominal pain that started at mid morning. She has also had nausea but no vomiting. she denies flatus, and is belching repeatedly. She has been having mushy/looser than normal BMs today with most recent one being at about 1330. She has a past surgical hx of cholecystectomy. she denies hx of SBO. She was in her usual state of health until this mid morning. She thought that she was hungry, and ate some bread and some cereal. She then became more and more nauseated. She has not vomited, but she feels like she wants to. Her abdomen feels bloated. She has a PMHx of structural heart disease, with mulitple procedures in her late teens/early adult life. She then developed CHF and atrial fib more recently. Last echocardiogram dated 01/16/2025 done at the [facility], copy scanned into the chart. Right and left ventricular systolic functions mildly reduced. Ejection fraction documented at 45 to 50%, severe dilation of the left atrium the mitral clip looks to be in good position, the atrial septum told device also looks to be in good position.. Mildly elevated RVSP, 35 mmHg. She is on Lasix 20 mg Thursday, spironolactone daily as well as metoprolol daily. She likes to take her diuretics in the evening as she stays way too busy during the day and she does not like how having to urinate limits her activities. She lives at home with her daughter, son-in-law and grandson. She has supportive family around her . [place]. [place] is a POLST status listed on the chart. The patient vehemently wants DNR DNI selective treatment with a focus on comfort not prolongation of life. I cannot find the scanned document. HOSPITAL COURSE Hospital Course: Admitted to OBS status for planned conservative management of a SBO. no history of SBO, remote lap sondra. She did well with NG decompression overnight, admin of gastrografin, and had return of bowel function. She was feeling better and tolerated a regular diet prior to discharge. ALLERGIES Allergies Allergy/AdvReac Type Severity Reaction Status Date / Time erythromycin base AdvReac Emesis Verified 04/03/25 09:52 MEDICATIONS Ambulatory Orders Medication Instructions Recorded Confirmed atorvastatin 20 mg tablet 20 mg ORAL DAILY 02/13/22 losartan 25 mg tablet 25 mg PO DAILY 03/31/2203/14 multivitamin 1 tab ORAL DAILY 12/21/22 aspirin 81 mg tablet,delayed 81 mg PO DAILY 02/17/24 1 06/04/24 release (Adult Low Dose Aspirin) [id number] 333 mg-133 1 tab PO DAILY 02/1604/03/25 mg-5 mg tablet biotin 10,000 mcg capsule 20,000 mcg PO DAILY 11/07/24 04/03/25 furosemide 20 mg tablet (Lasix) 20 mg PO DAILY 5 04/03/25 loratadine 10 mg tablet (Claritin) 10 mg PO DAILY 10/1204/03/25 metoprolol succinate 25 mg 25 mg PO DAILY 11/07/24 tablet,extended release 24 hr spironolactone 25 mg tablet 25 mg PO DAILY 11/07/24 (Aldactone) magnesium L-threonate 48 mg 48 mg PO QPM PRN sleep 04/03/25 magnesium (667 mg) capsule flecainide 100 mg tablet 100 mg PO BID 03/28/2504/03 fluticasone propionate 50 2 spray intranasal BID 03/2804/03/25 mcg/actuation nasal spray,suspension meclizine 25 mg tablet 25 mg PO DAILY PRN dizziness 03/28/25 04/03/25 PHYSICAL EXAM AT DISCHARGE Vital Signs: Vital Signs x48h Temp Pulse Pulse Resp BP BP Pulse Ox 03/28/25 11:54 36.5 C 88 18 126/63 93 03/28/25 08:10 36.7 C 86 18 132/66 H 96 03/28/25 08:08 86 132/66 H General Appearance: positive No acute distress and Alert Eyes Bilateral: positive Normal inspection ENT: positive ENT inspection nml Neck: positive Nml inspection Respiratory: positive No respiratory distress and Breath sounds nml Cardiovascular: positive Irregularly irregular Abdomen: positive No distention and Tenderness (very mild, diffuse) Back: positive Nml inspection Skin: positive Color nml Extremities: positive No pedal edema Neurologic/Psychiatric: positive Oriented x3 LABS 03/28/25 04:16 03/28/25 04:16 DIAGNOSTIC IMAGING Diagnostic Imaging Results Comments: CT A/P:Suspect early bowel obstruction: Mildly dilated loops of mid and distal small bowel, with transition point seen in the distal ileum. Mild adjacent reactive fluid in the right lower quadrant. Cardiomegaly. Other findings above. SBFT: Enteric tube is seen, terminating in gastric body. Excreted intravenous contrast is seen in the urinary bladder from prior CT Contrast is seen progressing through the small bowel loops, reaching the large bowel at 1 hour, excluding a complete bowel obstruction. Degenerative osseous changes and sternotomy wires. FOLLOW UP Follow Up: PCP 7-10 days for hospital followup. TIME SPENT Time Spent in Discharge (Minutes): 40 Discharge Plan Discharge Patient Disposition: 01 Home, Self Care Condition: Good Prescriptions: Continued atorvastatin 20 MG tablet 20 mg ORAL DAILY losartan 25 MG tablet 25 mg PO DAILY multivitamin 1 EACH tablet 1 tab ORAL DAILY spironolactone [Aldactone] 25 mg tablet 25 mg PO DAILY aspirin [Adult Low Dose Aspirin] 81 mg tablet,delayed release (DR/EC) 81 mg PO DAILY [id number]-[id number] 333-133-5 mg tablet 1 tab PO DAILY Patient Comments: gummy also with Vitamin D3 flecainide 100 mg tablet 100 mg PO BID Patient Comments: TAKE 1 TABLET BY MOUTH TWICE DAILY fluticasone propionate 50 mcg/actuation spray,suspension 2 spray INTRANASAL BID Patient Comments: USE 2 SPRAYS IN EACH NOSTRIL TWICE DAILY meclizine 25 mg tablet 25 mg PO DAILY PRN (Reason: dizziness) magnesium L-threonate 48 mg magnesium (667 mg) capsule 48 mg PO QPM PRN (Reason: sleep) Patient Comments: Patient states taking periodically at night furosemide [Lasix] 20 mg tablet 20 mg PO DAILY metoprolol succinate 25 mg tablet extended release 24 hr 25 mg PO DAILY loratadine [Claritin] 10 mg tablet 10 mg PO DAILY biotin 10,000 mcg capsule 20,000 mcg PO DAILY Diet: Regular Interventions: Discharge Last Done: 03/28/25 13:00 Discharge Checklist - Nursing Last Done: 03/28/25 13:02 Discharge Vital Signs (30 Minutes) Last Done: 03/28/25 13:16 Health Concerns: Your Diagnosis You were admitted to the hospital with a small bowel obstruction caused by adhesions (scar tissue from previous surgery). Your obstruction resolved with non-surgical treatment, including bowel rest and a contrast study that showed the blockage cleared. What Are Adhesions? Adhesions are bands of scar tissue that form inside your abdomen after surgery. They can cause your intestines to stick together or twist, leading to a blockage. This is a common problem that affects many people who have had abdominal surgery. Diet Instructions * You can eat what you feel like eating. * Eat small, frequent meals rather than large meals * Chew food thoroughly and eat slowly * Make sure to get plenty of fluids. Activity * Resume light activity as tolerated * Walking is encouraged to help your bowel function return to normal Medications * Resume all of your home medications * Avoid narcotic pain medications if possible, as they can slow down your bowel function * Use [id number]-[id number] stool softeners if needed to prevent constipation Warning Signs - When to Seek Immediate Medical Attention Call 911 or go to the emergency room if you experience: * Severe abdominal painthat doesn't improve or gets worse * Abdominal pain with fever (temperature over 100.4F) * Persistent vomiting, especially if you cannot keep down liquids * No bowel movements or passing gas for more than 24 hours * Abdominal swelling or bloating that worsens * Blood in your vomit or stool Important Information About Recurrence Small bowel obstructions can happen again.Recurrence rates are significant, with studies showing that 21-40% of patients may experience another episode within one year. The risk is highest in the first few months after discharge, particularly within the first 30 days. Follow-Up Care * Keep all scheduled appointments * Discuss any concerns about recurrence with your doctor Long-Term Considerations * You may benefit from discussing adhesion prevention strategies with your surgeon if you require future abdominal surgery * Maintain a healthy weight and stay active to promote good bowel function * Be aware of symptoms and seek care early if obstruction symptoms return Questions or Concerns If you have questions or concerns that are not emergencies, contact your surgeon's office during regular business hours. Remember:Early recognition and treatment of recurrent obstruction is important. Do not wait to seek medical attention if you develop concerning symptoms. Print Language: Latvian Patient Instructions: Small Bowel Obstruction Follow-up Care: Rayna Rojas NP [Primary Care Provider, [facility]] Vitals documented within 30 minutes of discharge?: Yes (See DC VSs)
--- NOTE | 2025-03-28 12:37 | PHARMACY PROGRESS NOTE ---
Best Possible Medication History Admit Date and Time: 03/27/25 1827 Home Medications Medication Instructions Recorded Confirmed Type atorvastatin 20 mg tablet 20 mg ORAL DAILY 02/13/22 History losartan 25 mg tablet 25 mg PO DAILY 03/31/2203/13 History multivitamin 1 tab ORAL DAILY 12/21/22 History aspirin 81 mg tablet,delayed 81 mg PO DAILY 02/17/24 1 05/28/24 History release (Adult Low Dose Aspirin) [id number] 333 mg-133 1 tab PO DAILY 02/1603/27/25 History mg-5 mg tablet biotin 10,000 mcg capsule 20,000 mcg PO DAILY 11/07/24 03/28/25 History furosemide 20 mg tablet (Lasix) 20 mg PO DAILY 5 03/28/25 History loratadine 10 mg tablet (Claritin) 10 mg PO DAILY 10/1203/28/25 History metoprolol succinate 25 mg 25 mg PO DAILY 11/07/24 History tablet,extended release 24 hr spironolactone 25 mg tablet 25 mg PO DAILY 11/07/24 History (Aldactone) magnesium L-threonate 48 mg 48 mg PO QPM PRN sleep 03/28/25 History magnesium (667 mg) capsule flecainide 100 mg tablet 100 mg PO BID 03/28/2503/28 History fluticasone propionate 50 2 spray intranasal BID 03/2803/28/25 History mcg/actuation nasal spray,suspension meclizine 25 mg tablet 25 mg PO DAILY PRN dizziness 03/28/25 03/28/25 History Processed by: Pharmacy Medications reviewed in ED?: Yes Medication History completed: Yes Patient Interview: Completed Secondary Source(s): Pharmacy records and Insurance records [facility] Statement: As the person ultimately responsible for medication therapy, providers are able to order a medication from an existing home medication list in [facility] via the "Reconcile Routine" prior to Confirmation of that medication by senior safety support manager. Such practice is discouraged except when the physician, in their clinical judgment, deems that a medical need exists for a medication without regard to previous use.
--- NOTE | 2025-03-28 13:08 | XRAY Report ---
PROCEDURE: XR SBFT Challenge Panel INDICATIONS: SBO COMPARISON: 03/27/2025 CT CONTRAST: Ingested contrast TECHNIQUE: Multiple abdominal images were obtained before and after contrast ingestion, using multiple time points FINDINGS AND IMPRESSION: Enteric tube is seen, terminating in gastric body. Excreted intravenous contrast is seen in the urinary bladder from prior CT Contrast is seen progressing through the small bowel loops, reaching the large bowel at 1 hour, excluding a complete bowel obstruction. Degenerative osseous changes and sternotomy wires. Reviewed by: Daniel Perez MD on 03/28/2025 1:05 PM PST Approved by: Daniel Perez MD on 03/28/2025 1:05 PM PST Station ID: [id number]
[2025-03-28 13:17] VITALS: BP 113/65; TEMP 97.9; O2SAT 96
== END 2025-03-28 13:32 | disposition home or self-care (01) ==
LOC: MS2 15:35 → ED 15:35 → MS2 19:00
PROVIDERS: ADMIT Physician Assistant Medical; ATTEND Physician Assistant Medical